=== PATIENT | male | born 1945 | race Caucasian/White ===

== ENCOUNTER 2020-08-11 09:17 | Outpatient (REF) | payer BC, SELFPAY ==
[2020-08-11 12:19] LABS: MANUAL DIFF FLAG NO
[2020-08-11 12:23] LABS: Basophils Percent Auto 0.5 % (0-2); Eosinophils Absolute Auto 0.1 X10*3/uL (0.0-0.4); Eosinophils Percent Auto 2.1 % (0-4); Hematocrit 42.7 % (42-52); Hemoglobin 14.4 g/dl (14.0-18.0); Imm Gran Abs Auto 0.02 X10*3/uL (0.00-0.03); Imm Gran Pct Auto 0.3 % (0.0-0.4); Lymphocytes Absolute Auto 2.6 X10*3/uL (1.2-4.9); Lymphocytes Percent Auto 38.9 % (20-40); Mean Corpuscular HGB Conc 33.7 g/dl (31.0-36.0); Mean Corpuscular Hemoglobin 30.3 pg (27.0-33.0); Mean Corpuscular Volume 89.9 fL (80-98); Mean Platelet Volume 11.5 fL (9.4-12.4); Monocytes Absolute Auto 0.6 X10*3/uL (0.1-1.2); Monocytes Percent Auto 8.5 % (2-11); Neutrophils Absolute Auto 3.3 X10*3/uL (2.0-8.3); Neutrophils Percent Auto 49.7 % (45-73); Platelet Count 170 X10*3/uL (160-400); Red Blood Count 4.75 X10*6/uL (4.60-5.80); Red Cell Distribution Width 13.3 % (11.0-16.0); White Blood Count 6.6 X10*3/uL (4.8-10.8)
[2020-08-11 12:39] LABS: Anion Gap 13 (12-20); Blood Urea Nitrogen 20 mg/dL (9-16); C Reactive Protein 0.09 mg/dL (< or = 0.50); Calcium 9.4 mg/dL (8.4-10.2); Carbon Dioxide 28 mmol/L (22-29); Chloride 103 mmol/L (96-108); Estimated Glomerular Filt Rate > 60; Glucose Random 130 mg/dL (60-115); Magnesium 1.9 mg/dL (1.6-2.6); Potassium 4.6 mmol/l (3.3-5.1); Sodium 139 mmol/L (135-145)
[2020-08-14 22:25] LABS: Vitamin B12 615 pg/mL (200-900)
== END 2020-08-11 09:18 | disposition home or self-care (01) ==
LOC: HO.10HDL 09:17
PROVIDERS: Visit Provider Internal Medicine
DX: R25.2 Cramp and spasm (principal)
CPT/HCPCS: 36415; 80048; 82607; 83735; 85025; 86140

== ENCOUNTER 2020-08-16 11:34 | Outpatient (REF) | payer BC, SELFPAY ==
--- NOTE | 2020-08-16 | XR_ITS ---
EXAMINATION: XR HAND, RIGHT CLINICAL INFORMATION: Right thumb pain COMPARISON: None TECHNIQUE: PA, lateral, and oblique views of the right hand. FINDINGS: There is no fracture or dislocation. Alignment is anatomic. Joint spaces are maintained with small osteophytes throughout the interphalangeal joints. The soft tissues are unremarkable. IMPRESSION: Small osteophytes throughout the interphalangeal joints. Otherwise unremarkable appearance of the hand.
== END 2020-08-16 11:35 | disposition home or self-care (01) ==
LOC: HO.XRAY 11:34
PROVIDERS: PCP Internal Medicine; Visit Provider Internal Medicine
DX: M79.644 Pain in right finger(s) (principal)
CPT/HCPCS: 73130

== ENCOUNTER 2020-11-04 07:53 | Outpatient (REF) | payer BC, SELFPAY ==
[2020-11-04 08:31] LABS: MANUAL DIFF FLAG NO
[2020-11-04 08:36] LABS: Basophils Percent Auto 0.3 % (0-2); Eosinophils Absolute Auto 0.1 X10*3/uL (0.0-0.4); Eosinophils Percent Auto 1.8 % (0-4); Hematocrit 44.2 % (42-52); Hemoglobin 14.9 g/dl (14.0-18.0); Imm Gran Abs Auto 0.03 X10*3/uL (0.00-0.03); Imm Gran Pct Auto 0.4 % (0.0-0.4); Lymphocytes Percent Auto 40.8 % (20-40); Mean Corpuscular HGB Conc 33.7 g/dl (31.0-36.0); Mean Corpuscular Hemoglobin 29.7 pg (27.0-33.0); Mean Platelet Volume 10.6 fL (9.4-12.4); Monocytes Absolute Auto 0.7 X10*3/uL (0.1-1.2); Monocytes Percent Auto 8.8 % (2-11); Neutrophils Absolute Auto 3.5 X10*3/uL (2.0-8.3); Neutrophils Percent Auto 47.9 % (45-73); Platelet Count 171 X10*3/uL (160-400); Red Blood Count 5.02 X10*6/uL (4.60-5.80); Red Cell Distribution Width 12.9 % (11.0-16.0); White Blood Count 7.4 X10*3/uL (4.8-10.8)
[2020-11-04 08:54] LABS: Alanine Aminotransferase 25 U/L (0-40); Albumin Level 4.2 g/dL (3.5-5.0); Alkaline Phosphatase 58 U/L (39-117); Anion Gap 11 (12-20); Aspartate Amino Transferase 19 U/L (5-37); Bilirubin Total 0.7 mg/dL (0.0-1.0); Blood Urea Nitrogen 20 mg/dL (9-16); Calcium 8.9 mg/dL (8.4-10.2); Carbon Dioxide 29 mmol/L (22-29); Chloride 102 mmol/L (96-108); Estimated Glomerular Filt Rate > 60; Glucose Random 171 mg/dL (60-115); Potassium 4.4 mmol/l (3.3-5.1); Sodium 138 mmol/L (135-145); Total Protein 6.9 g/dL (6.5-8.0)
[2020-11-04 08:56] LABS: Creatinine Urine 167.86 mg/dL; Microalbum/Creatinine Ratio Ur 4.7 ug/mg cr
[2020-11-04 09:03] LABS: Estimated Average Glucose 171 mg/dL; Hemoglobin A1c % 7.6 %
[2020-11-04 09:16] LABS: Free T4 (Free Thyroxine) 1.11 ng/dL (0.71-1.85); Thyroid Stimulating Hormone 1.71 uIU/mL (0.32-4.0)
== END 2020-11-04 07:54 | disposition home or self-care (01) ==
LOC: HO.LAB 07:53
PROVIDERS: PCP Internal Medicine; Visit Provider Internal Medicine
DX: E11.9 Type 2 diabetes mellitus without complications (principal); E03.9 Hypothyroidism, unspecified; I10 Essential (primary) hypertension
CPT/HCPCS: 36415; 80053; 82043; 83036; 84439; 84443; 85025

== ENCOUNTER 2020-11-06 14:09 | Outpatient (REF) | payer BC, SELFPAY | END 2020-11-06 14:10 | disposition home or self-care (01) | LOC: HO.LNP 14:09 | PROVIDERS: Visit Provider Internal Medicine | DX: Z20.822 Contact with and (suspected) exposure to COVID-19 (principal) | CPT/HCPCS: U0003 ==

== ENCOUNTER → 2020-12-21 10:37 | Outpatient (BNVA) | payer BC, SELFPAY | PROVIDERS: Visit Provider Orthopaedic Surgery | DX: M77.01 Medial epicondylitis, right elbow (principal) | CPT/HCPCS: 20550; 20605; J1020; J1100 ==

== ENCOUNTER 2021-04-28 18:19 | Emergency (ER) | payer OTHER, BC, SELFPAY ==
--- NOTE | ~2021-04-28 | CT_ITS ---
EXAMINATION: CT ABDOMEN AND PELVIS WITHOUT CONTRAST CLINICAL INFORMATION: Lower abdominal pain COMPARISON: 03/17/2017 TECHNIQUE: Multidetector volumetric imaging was performed from the superior aspect of the liver through the pubic symphysis. Sagittal and coronal reformatted images were obtained on the technologist's workstation. This CT examination was performed using dose optimization techniques as appropriate, variously including the following: *Automated exposure control *Adjustment of mA and/or kV according to patient size (this includes techniques or standardized protocols for targeted exams where dose is matched to indication/reason for exam; i.e. extremities or head) *Use of iterative reconstruction technique DLP: 534 mGy-cm FINDINGS: LUNG BASES: The visualized lung bases are unremarkable. LIVER, GALLBLADDER, AND BILIARY TREE: Once again heterogeneous attenuation the liver but no defined lesion. Similar to previous. Maybe consistent with subsegmental fatty change. Consider ultrasound The gallbladder is unremarkable with no evidence of radiopaque gallstones, gallbladder wall thickening, or obvious pericholecystic inflammatory changes. PANCREAS: Unremarkable. SPLEEN: Unremarkable. ADRENAL GLANDS: Unremarkable. KIDNEYS AND URETERS: The kidneys are normal in size, shape, and attenuation. No hydronephrosis, hydroureter, or calculi seen. No perinephric stranding. BLADDER: Unremarkable. GASTROINTESTINAL TRACT: Soft tissue stranding around the proximal sigmoid. Diverticula in the region. Most consistent with diverticulitis. No drainable collection. ABDOMINAL WALL: No significant hernia is appreciated. LYMPH NODES: Normal. VASCULAR: Atherosclerotic change. No aneurysmal change. PELVIC VISCERA: Prominent prostate OSSEOUS STRUCTURES: Unremarkable. CT/CT abdomen pelvis wo con IMPRESSION: Endings consistent with diverticulitis in the proximal sigmoid. No drainable collection. Prominent prostate
[2021-04-28 18:20] VITALS: BP 131/102; PULSE 90; RESP 16; TEMP 36.6; O2SAT 98; BMI 29.2
--- NOTE | 2021-04-28 19:00 | ED_ITS ---
HPI - Abdominal Pain General Chief Complaint: Abdominal Pain Stated Complaint: LOWER CRAMPING Time Seen by Provider: 04/28/21 18:58 Source: patient Mode of arrival: ambulatory Limitations: no limitations History of Present Illness HPI narrative: 75-year-old male with past medical history that is significant for arthritis, hypercholesteremia, hypertension, thyroid disease, anxiety and prior history of renal calculi in 2017 for today presents with complaint of states he had [employer] take out on Friday he ate a small portion of his bowl he subsequent save the rest for the next day which she had and also that day he has some seafood and afterward developed lower abdominal cramping with slight diarrhea. States he has had continued low abdominal cramping since. There is no associated nausea vomiting. Also did report to the triage nurse he has some slight discomfort urination which states he only had 1 episode and has not had any further. States he does have history of renal calculi but this does not feel like that. He denies any hematuria. No fever. No flank pain. MD elicited complaint: abdominal pain Pertinent past history: none Onset (ago): day(s) Pain Consistency: intermittent Location: none Severity: mild Quality: cramping Migration to: no migration Exacerbating factors: nothing Relieving factors: nothing Associated symptoms: denies other symptoms Related Data Home Medications Medication Instructions Recorded Confirmed hydrochlorothiazide 25 mg tablet 25 mg PO DAILY 12/21/20 levothyroxine 100 mcg capsule 100 mcg PO DAILY 12/21/20 lisinopril 5 mg tablet 5 mg PO DAILY 12/21/20 simvastatin 40 mg tablet 40 mg PO DAILY 12/21/20 Previous Rx's Medication Instructions Recorded ciprofloxacin HCl 500 mg PO BID 7 Days #14 tab 04/28/21 metronidazole [Flagyl] 500 mg PO Q12H 7 Days #14 tab 04/28/21 Allergies Allergy/AdvReac Type Severity Reaction Status Date / Time No Known Allergies Allergy Unverified 07/20/20 15:06 Review of Systems Review of Systems Constitutional: No Weight loss, No Fever, No Chills, No Night Sweats, No Fatigue, No Malaise ENT/Mouth: No Hearing loss, No Ear Pain, No Nasal Congestion, No Sinus Pain, No Hoarseness, No sore throat, No Rhinorrhea, No Swallowing Difficulty Eyes: No Eye Pain, No Swelling, No Redness, No Foreign Body, No Discharge, No Vision Changes Cardiovascular: No Chest Pain, No SOB, No Dyspnea on Exertion, No Orthopnea, No Edema, No Palpitations Respiratory: No Cough, No Sputum, No Wheezing, No Smoke Exposure, No Dyspnea Gastrointestinal: No Nausea, No Vomiting, + Diarrhea, No Constipation, + abdominal Pain, No Hematochezia, No Melena Genitourinary: No Dysuria, No Urinary Frequency, No Hematuria, No Urinary Incontinence, No Urgency, No Flank Pain, No Urinary Flow Changes, No Hesitancy Musculoskeletal: No joint pain, No Myalgias, No Joint Swelling Skin: No Skin Lesions, No rash Neuro: No Weakness, No Numbness, No Paresthesias, No Loss of Consciousness, No Dizziness, No Headache Psych: No Social Issues Heme/Lymph: No Bruising, No Bleeding,No Lymphadenopathy Endocrine: No Polyuria, No Polydipsia, No Temperature Intolerance Yes all other systems are reviewed and are negative Physical Exam Vital Signs: Vital Signs: Last Vital Signs Temp 98.7 F 04/28/21 19:46 Pulse 88 04/28/21 19:46 Resp 14 04/28/21 19:46 BP 147/85 H 04/28/21 19:46 Pulse Ox 99 04/28/21 19:46 Body Mass Index 29.2 Reviewed Const: General: cooperative and healthy appearing; No acute distress or intoxicated appearing Nutritional Appearance: average body habitus Orientation/consciousness: patient oriented x3 HENMT: Head: Yes normal to inspection Ears: hearing grossly normal bilaterally Eyes: General: appearance normal, both eyes and all related structures Visual Dasilva: normal visual dasilva by confrontation Neck: Neck: Yes normal visual inspection, No positive Brudzinski's sign, No positive Kernig's sign and No tender Thyroid: Thyroid normal Chest: Chest palpation & inspection: normal inspection of the chest Resp: Effort & Inspection: normal respiratory effort Auscultation: clear to auscultation bilaterally Cardio: Jugular venous distension: no JVD Rhythm: regular rhythm Heart sounds: S1 normal heart sound present and S2 normal heart sound present GI: Inspection: Yes normal to inspection Palpation (GI): Soft to palpation Percussion: Yes normal to percussion Auscultation: normal bowel sounds : General: Yes no CVA tenderness Back/Spine/Pelvis: Back: no CVA tenderness Skin: General skin exam: no rashes or lesions noted Neuro: General: patient oriented x3 Extrem: General: Yes normal to inspection Course Course Course Narrative: has not required any antiemetics or pain medicine. States minimal to no pain at this time. Labs showed leukocytosis of 14 otherwise labs stable. He is vital signs are stable. No fever. CT of the abdomen pelvis shows diverticulitis in the proximal aspect of the sigmoid colon. There is no abscess or drainable collection. There is no perforation. Findings were reviewed with patient. Given dose of quinolone and Flagyl would like to go home try p.o. antibiotics. Clear precaution return follow-up provided. Feels comfortable plan. Stable for discharge. MDM - Abdominal Pain Differential Diagnosis Differential diagnosis: Likely abdominal pain, calculus of kidney, diverticulitis, gastroenteritis and renal colic; Unlikely aortic dissection, acute appendicitis, bowel perforation, constipation, gastritis, mesenteric ischemia, pancreatitis, peptic ulcer disease and small bowel obstruction Medical Records Attestation: I reviewed the patient's medical records. Lab Data Attestation: I reviewed the patient's lab results. Result diagrams: 04/28/21 19:13 04/28/21 19:13 Labs: Lab Results 04/28/21 04/28/21 04/28/21 Range/Units 19:04 19:13 19:13 WBC 14.0 H (4.8-10.8) X10*3/uL RBC 5.14 (4.60-5.80) X10*6/uL Hgb 15.7 (14.0-18.0) g/dl Hct 44.5 (42-52) % MCV 86.6 (80-98) fL MCH 30.5 (27.0-33.0) pg MCHC 35.3 (31.0-36.0) g/dl RDW 12.8 (11.0-16.0) % Plt Count 211 (160-400) X10*3/uL MPV 9.8 (9.4-12.4) fL Immature Gran % (Auto) 0.3 (0.0-0.4) % Neut % (Auto) 72.1 (45-73) % Lymph % (Auto) 19.3 L (20-40) % [place] % (Auto) 7.6 (2-11) % Eos % (Auto) 0.5 (0-4) % Baso % (Auto) 0.2 (0-2) % Lymph # (Auto) 2.7 (1.2-4.9) X10*3/uL [place] # (Auto) 1.1 (0.1-1.2) X10*3/uL Eos # (Auto) 0.1 (0.0-0.4) X10*3/uL Baso # (Auto) 0.0 (0.0-0.2) X10*3/uL Abs Immat Gran (auto) 0.04 H (0.00-0.03) X10*3/uL Absolute Neuts (auto) 10.1 H (2.0-8.3) X10*3/uL Absolute Nucleated RBC 0.000 (0.0-0.012) X10*3/uL Nucleated RBC % (auto) 0.0 (0.0-0.2) /100WBC Sodium 135 (135-145) mmol/L Potassium 4.2 (3.3-5.1) mmol/L Chloride 99 (96-108) mmol/L Carbon Dioxide 23 (22-29) mmol/L Anion Gap 17 (12-20) BUN 16 (9-16) mg/dL Creatinine 0.82 (0.5-1.4) mg/dL Estim Creat Clear Calc 80.7 Estimated GFR > 60 Random Glucose 141 H (60-115) mg/dL Calcium 9.4 (8.4-10.2) mg/dL Total Bilirubin 0.7 (0.0-1.0) mg/dL AST 21 (5-37) U/L ALT 17 (0-40) U/L Alkaline Phosphatase 65 (39-117) U/L Total Protein 7.4 (6.5-8.0) g/dL Albumin 4.4 (3.5-5.0) g/dL Urine Color YELLOW Urine Appearance CLEAR Urine pH 6.0 (5.0-8.0) Ur Specific [place] 1.025 (1.005-1.025) Urine Protein NEG (NEG-TRACE) MG/DL Urine Glucose (UA) NEG (NEG) MG/DL Urine Ketones 15 (NEG) MG/DL Urine Blood TRACE (NEG) Urine Nitrite NEG (NEG) Ur Leukocyte Esterase NEG (NEG) Urine RBC 5-9 H (0) /HPF Urine WBC 0-2 (0-4) /HPF Ur Squamous Epith Cells NONE /LPF Urine Bacteria NONE /LPF Urine Mucus TRACE /LPF Imaging Data abdominal/pelvis CT: Radiologist's impression: [address] [id number] Scan ReportSigned Patient: Jose Carlos Alonzo [facility]#: [id number]: 7Acct:[id number]/Sex: 75 / MADM Date: 04/28/21Loc: HO.EDAttending Dr: Ordering Physician: Yariel Evans NP Date of Service: 04/28/21 Procedure(s): CT abdomen pelvis wo con Accession Number(s): [id number] cc: Yariel Evans 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 Sagittal and coronal reformatted images were obtained on the technologist's workstation. This CT examination was performed using dose optimization techniques as appropriate, variously including the following: *Automated exposure control *Adjustment of mA and/or kV according to patient size (this includes techniques or standardized protocols for targeted exams where dose is matched to indication/reason for exam; i.e. extremities or head) *Use of iterative reconstruction technique DLP: 534 mGy-cm FINDINGS: LUNG BASES: The visualized lung bases are unremarkable. LIVER, GALLBLADDER, AND BILIARY TREE: Once again heterogeneous attenuation the liver but no defined lesion. Similar to previous. Maybe consistent with subsegmental fatty change. Consider ultrasound The gallbladder is unremarkable with no evidence of radiopaque gallstones, gallbladder wall thickening, or obvious pericholecystic inflammatory changes. PANCREAS: Unremarkable. SPLEEN: Unremarkable. ADRENAL GLANDS: Unremarkable. KIDNEYS AND URETERS: The kidneys are normal in size, shape, and attenuation. No hydronephrosis, hydroureter, or calculi seen. No perinephric stranding. BLADDER: Unremarkable. GASTROINTESTINAL TRACT: Soft tissue stranding around the proximal sigmoid. Diverticula in the region. Most consistent with diverticulitis. No drainable collection. ABDOMINAL WALL: No significant hernia is appreciated. LYMPH NODES: Normal. VASCULAR: Atherosclerotic change. No aneurysmal change. PELVIC VISCERA: Prominent prostate OSSEOUS STRUCTURES: Unremarkable. CT/CT abdomen pelvis wo con IMPRESSION: Endings consistent with diverticulitis in the proximal sigmoid. No drainable collection. 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: GT Discharge Plan Discharge Clinical Impression: Diverticulitis Patient Disposition: Home, Self-Care Instructions: Diverticulitis (ED), Diverticulitis Diet (ED) Additional Instructions: follow dietary precautions Take your antibiotic as prescribed Return if any concerns or worsening symptoms otherwise follow up with her primary care doctor thank you Prescriptions: New metronidazole [Flagyl] 500 mg tablet 500 mg PO Q12H 7 Days Qty: 14 RF: 0 ciprofloxacin HCl 500 mg tablet 500 mg PO BID 7 Days Qty: 14 RF: 0 Referrals: Jonathon Hammond MD [Primary Care Provider] - 3 days PMF Past Medical History Medical History Hypercholesteremia Hypertension Hyperthyroidism Social History Social History Alcohol intake: never Patient Tobacco Use Status: Never used Tobacco Use of substances other than those prescribed or required for medical reasons: No Advance Directives: Yes Advance Directives on File: Yes Advance Directives Date on File: 08/11/20
[2021-04-28 19:14] LABS: Glucose Urine UA NEG (NEG); Leukocyte Esterase Urine NEG (NEG); Nitrite Urine NEG (NEG); Specific Gravity - Urine 1.025 (1.005-1.025); Urine Blood TRACE (NEG); Urine Ketones 15 MG/DL (NEG); Urine Protein NEG (NEG-TRACE)
[2021-04-28 19:17] LABS: MANUAL DIFF FLAG NO
[2021-04-28] MEDS: 0.9 % Sodium Chloride 500 ML IV (19:18)
[2021-04-28 19:20] LABS: Appearance Urine CLEAR; Color Urine YELLOW
[2021-04-28 19:21] LABS: Basophils Percent Auto 0.2 % (0-2); Eosinophils Absolute Auto 0.1 X10*3/uL (0.0-0.4); Eosinophils Percent Auto 0.5 % (0-4); Hematocrit 44.5 % (42-52); Hemoglobin 15.7 g/dl (14.0-18.0); Imm Gran Abs Auto 0.04 X10*3/uL (0.00-0.03); Imm Gran Pct Auto 0.3 % (0.0-0.4); Lymphocytes Absolute Auto 2.7 X10*3/uL (1.2-4.9); Lymphocytes Percent Auto 19.3 % (20-40); Mean Corpuscular HGB Conc 35.3 g/dl (31.0-36.0); Mean Corpuscular Hemoglobin 30.5 pg (27.0-33.0); Mean Corpuscular Volume 86.6 fL (80-98); Mean Platelet Volume 9.8 fL (9.4-12.4); Monocytes Absolute Auto 1.1 X10*3/uL (0.1-1.2); Monocytes Percent Auto 7.6 % (2-11); Neutrophils Absolute Auto 10.1 X10*3/uL (2.0-8.3); Neutrophils Percent Auto 72.1 % (45-73); Platelet Count 211 X10*3/uL (160-400); Red Blood Count 5.14 X10*6/uL (4.60-5.80); Red Cell Distribution Width 12.8 % (11.0-16.0)
[2021-04-28 19:27] LABS: Mucus Urine TRACE /LPF; WBC Urine 0-2 /HPF (0-4)
[2021-04-28 19:46] VITALS: BP 147/85; PULSE 88; RESP 14; TEMP 37.1; O2SAT 99
[2021-04-28 19:55] LABS: Alanine Aminotransferase 17 U/L (0-40); Albumin Level 4.4 g/dL (3.5-5.0); Alkaline Phosphatase 65 U/L (39-117); Anion Gap 17 (12-20); Aspartate Amino Transferase 21 U/L (5-37); Bilirubin Total 0.7 mg/dL (0.0-1.0); Blood Urea Nitrogen 16 mg/dL (9-16); Calcium 9.4 mg/dL (8.4-10.2); Carbon Dioxide 23 mmol/L (22-29); Chloride 99 mmol/L (96-108); Creatinine Clr Calc Pharmacy 80.7; Estimated Glomerular Filt Rate > 60; Glucose Random 141 mg/dL (60-115); Potassium 4.2 mmol/L (3.3-5.1); Sodium 135 mmol/L (135-145); Total Protein 7.4 g/dL (6.5-8.0)
[2021-04-28] MEDS: levoFLOXacin 500 MG TABLET PO (21:12)
[2021-04-28] MEDS: metroNIDAZOLE 500 MG TABLET PO (21:12)
== END 2021-04-28 21:21 | disposition home or self-care (01) ==
PROVIDERS: Nurse Practitioner Primary Care; Emergency Provider Internal Medicine; PCP Internal Medicine
DX: K57.92 Diverticulitis of intestine, part unspecified, without perforation or abscess without bleeding (principal); I10 Essential (primary) hypertension; Z87.442 Personal history of urinary calculi
CPT/HCPCS: 36415; 74176; 80053; 81001; 85025; 96360; 99284; 99285

== ENCOUNTER 2021-06-27 10:56 | Outpatient (REF) | payer BC, SELFPAY ==
[2021-06-27 13:53] LABS: Estimated Average Glucose 148 mg/dL; Hemoglobin A1c % 6.8 %
[2021-06-27 14:31] LABS: Creatinine Urine 101.07 mg/dL; Microalbum/Creatinine Ratio Ur 4.9 ug/mg cr
[2021-06-27 14:51] LABS: Anion Gap 12 (12-20); Blood Urea Nitrogen 17 mg/dL (9-16); Carbon Dioxide 27 mmol/L (22-29); Chloride 102 mmol/L (96-108); Estimated Glomerular Filt Rate > 60; Glucose Random 108 mg/dL (60-115); Potassium 4.4 mmol/L (3.3-5.1); Sodium 137 mmol/L (135-145)
[2021-06-27 14:55] LABS: Free T4 (Free Thyroxine) 1.34 ng/dL (0.71-1.85); Thyroid Stimulating Hormone 0.39 uIU/mL (0.32-4.0)
== END 2021-06-27 10:57 | disposition home or self-care (01) ==
LOC: HO.10HDL 10:56
PROVIDERS: PCP Internal Medicine; Visit Provider Internal Medicine
DX: E11.9 Type 2 diabetes mellitus without complications (principal); I10 Essential (primary) hypertension; E03.9 Hypothyroidism, unspecified
CPT/HCPCS: 36415; 80048; 82043; 83036; 84439; 84443

== ENCOUNTER 2022-01-15 10:30 | Outpatient (REF) | payer BC, SELFPAY ==
[2022-01-15 12:05] LABS: Estimated Average Glucose 186 mg/dL; Hemoglobin A1c % 8.1 %
[2022-01-15 12:28] LABS: Creatinine Urine 78.74 mg/dL; Microalbum/Creatinine Ratio Ur 13.9 ug/mg cr
[2022-01-15 12:34] LABS: Alanine Aminotransferase 23 U/L (0-40); Albumin Level 4.3 g/dL (3.5-5.0); Alkaline Phosphatase 75 U/L (39-117); Anion Gap 15 (12-20); Aspartate Amino Transferase 20 U/L (5-37); Bilirubin Total 0.4 mg/dL (0.0-1.0); Blood Urea Nitrogen 15 mg/dL (9-16); Carbon Dioxide 25 mmol/L (22-29); Chloride 100 mmol/L (96-108); Estimated Glomerular Filt Rate > 60; Glucose Random 212 mg/dL (60-115); Potassium 4.4 mmol/L (3.3-5.1); Sodium 136 mmol/L (135-145); Total Protein 7.4 g/dL (6.5-8.0)
[2022-01-15 12:38] LABS: Free T4 (Free Thyroxine) 1.29 ng/dL (0.71-1.85); Thyroid Stimulating Hormone 0.73 uIU/mL (0.32-4.0)
== END 2022-01-15 10:31 | disposition home or self-care (01) ==
LOC: HO.HMGCLDS 10:30
PROVIDERS: Visit Provider Internal Medicine
DX: E11.9 Type 2 diabetes mellitus without complications (principal); E03.9 Hypothyroidism, unspecified; I10 Essential (primary) hypertension
CPT/HCPCS: 36415; 80053; 82043; 83036; 84439; 84443

== ENCOUNTER 2022-06-04 11:47 | Outpatient (REF) | payer BC, SELFPAY ==
[2022-06-04 12:51] LABS: Estimated Average Glucose 180 mg/dL; Hemoglobin A1c % 7.9 %
[2022-06-04 13:15] LABS: Anion Gap 16 (12-20); Blood Urea Nitrogen 18 mg/dL (9-16); Calcium 9.6 mg/dL (8.4-10.2); Carbon Dioxide 25 mmol/L (22-29); Chloride 101 mmol/L (96-108); Estimated Glomerular Filt Rate > 60; Glucose Random 176 mg/dL (60-115); Potassium 4.4 mmol/L (3.3-5.1); Sodium 138 mmol/L (135-145)
[2022-06-04 13:37] LABS: Prostate Specific Antigen 0.82 ng/mL (<0.05-4.0)
== END 2022-06-04 11:48 | disposition home or self-care (01) ==
LOC: HO.LAB 11:47
PROVIDERS: PCP Internal Medicine; Visit Provider Internal Medicine
DX: Z12.5 Encounter for screening for malignant neoplasm of prostate (principal); I10 Essential (primary) hypertension; E11.9 Type 2 diabetes mellitus without complications; N40.0 Benign prostatic hyperplasia without lower urinary tract symptoms
CPT/HCPCS: 36415; 80048; 83036; 84153

== ENCOUNTER 2022-08-20 16:35 | Outpatient (REF) | payer OTHER, SELFPAY ==
--- NOTE | ~2022-08-20 | US_ITS ---
EXAMINATION: US VENOUS ULTRASOUND WITH DOPPLER LOWER EXTREMITY, RIGHT CLINICAL INFORMATION: Calf pain. Question DVT. COMPARISON: None TECHNIQUE: Ultrasound of the deep veins is performed from the hip to the calf with compression sonography and color and pulse Doppler assessment. Spectral analysis with color-flow imaging is performed. FINDINGS: There is normal venous compression and respiratory variation and augmented flow. The visualized common femoral vein, superficial femoral vein, profunda femoral vein, popliteal vein, and the trifurcation region shows no evidence of deep venous thrombosis. There is no significant popliteal fossa cyst. If the patient's symptoms persist, followup ultrasound in 5 days 7 days might be of value to exclude proximal propagation from a non-visualized calf vein. US/US venous duplex LE RT IMPRESSION: No DVT demonstrated in the right lower extremity.
== END 2022-08-20 16:36 | disposition home or self-care (01) ==
LOC: HO.US 16:35
PROVIDERS: PCP Internal Medicine; Visit Provider Internal Medicine
DX: M79.661 Pain in right lower leg (principal)
CPT/HCPCS: 93971

== ENCOUNTER 2022-09-10 10:52 | Outpatient (REF) | payer BC, SELFPAY ==
[2022-09-10 14:19] LABS: Anion Gap 12 (12-20); Blood Urea Nitrogen 16 mg/dL (9-16); Calcium 10.2 mg/dL (8.4-10.2); Carbon Dioxide 29 mmol/L (22-29); Chloride 98 mmol/L (96-108); Estimated Glomerular Filt Rate > 60; Glucose Random 106 mg/dL (60-115); Magnesium 1.8 mg/dL (1.6-2.6); Potassium 4.4 mmol/L (3.3-5.1); Sodium 135 mmol/L (135-145)
[2022-09-10 14:31] LABS: Creatinine Urine 107.34 mg/dL; Microalbum/Creatinine Ratio Ur 6.5 ug/mg cr
[2022-09-10 14:32] LABS: Estimated Average Glucose 160 mg/dL; Hemoglobin A1c % 7.2 %
== END 2022-09-10 10:53 | disposition home or self-care (01) ==
LOC: HO.10HDL 10:52
PROVIDERS: Visit Provider Internal Medicine
DX: I10 Essential (primary) hypertension (principal); E11.9 Type 2 diabetes mellitus without complications; R25.2 Cramp and spasm
CPT/HCPCS: 36415; 80048; 82043; 83036; 83735

== ENCOUNTER 2023-03-24 09:59 | Outpatient (REF) | payer BC, SELFPAY ==
[2023-03-24 10:46] LABS: MANUAL DIFF FLAG NO
[2023-03-24 10:50] LABS: Basophils Percent Auto 0.5 % (0-2); Eosinophils Absolute Auto 0.1 X10*3/uL (0.0-0.4); Eosinophils Percent Auto 1.4 % (0-4); Hematocrit 44.6 % (42.0-52.0); Hemoglobin 15.2 g/dl (14.0-18.0); Imm Gran Abs Auto 0.03 X10*3/uL (0.00-0.03); Imm Gran Pct Auto 0.4 % (0.0-0.4); Lymphocytes Absolute Auto 2.6 X10*3/uL (1.2-4.9); Lymphocytes Percent Auto 31.2 % (20-40); Mean Corpuscular HGB Conc 34.1 g/dl (31.0-36.0); Mean Corpuscular Hemoglobin 29.9 pg (27.0-33.0); Mean Corpuscular Volume 87.8 fL (80.0-98.0); Mean Platelet Volume 10.2 fL (9.4-12.4); Monocytes Absolute Auto 0.6 X10*3/uL (0.1-1.2); Monocytes Percent Auto 7.6 % (2-11); Neutrophils Percent Auto 58.9 % (45-73); Platelet Count 185 X10*3/uL (160-400); Red Blood Count 5.08 X10*6/uL (4.60-5.80); Red Cell Distribution Width 13.2 % (11.0-16.0); White Blood Count 8.5 X10*3/uL (4.8-10.8)
[2023-03-24 11:06] LABS: Estimated Average Glucose 160 mg/dL; Hemoglobin A1c % 7.2 %
[2023-03-24 11:42] LABS: Anion Gap 14 (12-20); Blood Urea Nitrogen 15 mg/dL (9-16); Calcium 9.6 mg/dL (8.4-10.2); Carbon Dioxide 27 mmol/L (22-29); Chloride 101 mmol/L (96-108); Estimated Glomerular Filt Rate > 60; Glucose Random 149 mg/dL (60-115); Potassium 4.5 mmol/L (3.3-5.1); Sodium 137 mmol/L (135-145)
== END 2023-03-24 10:00 | disposition home or self-care (01) ==
LOC: HO.10HDL 09:59
PROVIDERS: Visit Provider Internal Medicine
DX: I10 Essential (primary) hypertension (principal); E11.9 Type 2 diabetes mellitus without complications
CPT/HCPCS: 36415; 80048; 83036; 85025

== ENCOUNTER 2023-06-05 14:38 | Outpatient (AMB) | payer BC, SELFPAY ==
--- NOTE | 2023-06-05 14:49 | AM.OFFWIN_ITS ---
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 pt states he still feels light headed. Patient Tobacco Use Status: Never used Tobacco Allergies No Known Allergies Allergy (Verified 06/05/23 14:51) Do you need a note to return to daycare/school/sports/work: No HPI HPI Comments History of Present Illness Details 77-year-old male that presents for near syncopal episode. Patient states that he was driving today lightheaded acute bypass out. He pulled over to the side of the road. He continues to drive and continued to feel lightheaded. His lightheadedness is starting to resolve. He denies chest pain shortness of breath but during the incident did feel like he needed to burp but could not. Denies fevers chills cough urinary symptoms leg swelling calf tenderness recent flights or travel. Headaches or vision changes. [facility] Medical History Hypercholesteremia Hypertension Hyperthyroidism Social History Alcohol intake: never Patient Tobacco Use Status: Never used Tobacco Advance Directives Date on File: 08/11/20 Review of Systems Const All systems reviewed & are unremarkable except as noted in HPI and below Denies fever(s), Denies headache(s) and Denies weakness Eyes Reports no additional complaints ENT Reports no additional complaints and Denies headache(s) Card Reports no additional complaints, Denies chest pain, Denies leg edema and Denies dyspnea Resp Denies cough and Denies dyspnea GI Denies abdominal pain, Denies nausea and Denies vomiting Denies dysuria and Denies urinary frequency Musc Reports no additional complaints Neuro Denies headache(s) and Denies weakness Psych Reports no additional complaints Endo Reports no additional complaints Physical Exam Vital Signs: Last Vital Signs Temp 98.2 F 06/05/23 14:52 Pulse 95 06/05/23 14:52 BP 120/78 06/05/23 14:52 Pulse Ox 95 06/05/23 14:52 Oxygen Delivery Method Room Air 06/05/23 14:52 Const General: cooperative, no acute distress and alert Orientation/consciousness: patient oriented x3 Limitations: no limitations HEENT Head: Yes normal to inspection Ears: hearing grossly normal bilaterally and external ears normal General nose exam: Normal external nose present Eyes General: appearance normal, both eyes and all related structures Neck Neck: Yes normal visual inspection Chest Chest palpation & inspection: normal inspection of the chest Resp Effort & Inspection: normal respiratory effort, able to speak in complete sentences and no audible wheezes Auscultation: clear to auscultation bilaterally Cardio Rate: regular rate Rhythm: regular rhythm GI Inspection: Yes normal to inspection Palpation (GI): Soft to palpation and nontender Skin General skin exam: no rashes or lesions noted Neuro Other: NEURO PHYSCIAL EXAM Alert and oriented to person, place, time speech: clear, fluent CN II: visual acuity grossly intact b/l, PERRLA CN III, IV, : EOMI CN V: facial sensation grossly intact to light touch b/l CN VII: symmetric facial movement b/l, no facial droop CN VIII: hearing intact to finger rub b/l, no nystagmus CN IX, X: uvula midline CN XI: 5/5 strength with SCM and trapezius b/l CN XII: midline tongue protrusion, no atrophy or fasciculations motor: 5/5 muscle strength of UE/LE b/l, no pronator drift sensory: grossly intact b/l to light touch coordination: No dysmetria or dysdiadochokinesia with rapid alternating movement and finger to nose testing reflexes: 2+ DTR Gait: Normal General: patient oriented x3 Psych Appearance: grossly normal Mental Status: mental status grossly normal Speech and movement: Normal speech and movement present Affect: normal affect Attitude: cooperative Thought process: Normal thought process present Thought content: Normal thought content present Results AMB Random Glucose (hemocue) AMB Random Glucose (hemocue) 96 mg/dL Last Edit by NOVA Esparza 06/05/23 15:45 Results Reviewed Results Reviewed: Laboratory Last Values Random Glu (Clinic) 96 mg/dL 06/05/23 15:43 Assessment & Plan Assessment & Plan (1) Near syncope: Code(s): R55 - Syncope and collapse Plan VSS. On exam patient' presents alert and oriented no acute distress exam is otherwise unremarkable. Neuro exam grossly intact no focal pre new murmurs appreciated no calf swelling or lower extremity edema. Given patient is a consideration as neurologic versus cardiovascular versus infectious etiology low suspicion for infectious etiology given no systemic signs of illness to fevers or chills. Suspicion for cardiovascular houses given no chest pain. Discussed with patient limitations of the walk-in clinic will provide EKG as well as blood sugar check given patient is a diabetic. EKG shows no acute abnormalities this time although no additional EKG for comparison could be found. Blood sugar was 96. Long discussion occurred with the patient regarding possible causes of syncope/near-syncope. Discuss that there are certain limitations to the walk-in clinic and things that cannot be ruled out. Shared decision-making occurred with the patient. Patient states that he feels better at this time and thinks he will just check in with his primary care provider. Given the absence of concerning findings on examination, vital signs, EKG, blood sugar check as well as the absence of actual syncope and resolution of symptoms I feel that this is not unreasonable. Discharge instructions, follow up and treatment are discussed with patient in my usual fashion. Alternatives in treatment are also discussed. The patient will return for worsening symptoms or as needed. Advised that any labs/imaging ordered will be followed up on and contact made if further treatment needed. Counseled that patient's condition may require further evaluation and/or treatment. Symptoms of concern for worsening disorder discussed in detail in my customary manner. Patient does verbalize understanding of the plan, there are no apparent barriers to communication. The patient is given the opportunity to ask questions and have them answered to his/her satisfaction Orders: Orders AMB EKG-In Office Today R25.2 - Cramp and spasm AMB Random Glucose (hemocue) Today Z13.9 - Encounter for screening, unspecified Patient Instructions: Your seen and evaluated for your episode of lightheadedness this time as we discussed is unclear the cause of this. If you experience any new worsening symptoms such as chest pain shortness of breath leg swelling nausea vomiting abdominal pain , back pain or increasing symptoms not mentioned above please report to the emergency department Coding Level of Care Code Est Pt Level 4 (79749) Diagnoses Near syncope R55
[2023-06-05 14:52] VITALS: BP 120/78; PULSE 95; TEMP 36.8; O2SAT 95
== END 2023-06-05 15:53 | disposition home or self-care (01) ==
PROVIDERS: PCP Internal Medicine; Visit Provider Physician Assistant
DX: R55 Syncope and collapse (principal); Z13.9 Encounter for screening, unspecified
CPT/HCPCS: 82948; 99214

== ENCOUNTER 2023-06-26 09:48 | Outpatient (AMB) | payer BC, SELFPAY ==
--- NOTE | 2023-06-26 11:35 | AM.OFFWIN_ITS ---
Intake Vital Signs 06/26/23 11:36 Height 5 ft 6 in Weight 79.095 kg BMI 28.1 BP 122/70 Blood Pressure Location Rt brachial Position Sitting Pulse 76 Pulse Source Pulse Oximeter Temp 97 F Temp Source Temporal Artery Scan Pulse Oximetry (%) 98 Oxygen Delivery Method Room Air Intake Visit Reasons: EP, Right Index finger laceration Intake Note: Pt is here c/o right index finger laceration. Patient Tobacco Use Status: Never used Tobacco Allergies No Known Allergies Allergy (Verified 06/26/23 11:36) Do you need a note to return to daycare/school/sports/work: No HPI HPI Comments History of Present Illness Details 1215 77-year-old male presents for evaluation of laceration to right 2nd finger, on the fat pad region patient sustained this laceration with scissors while cutting electrical wire yesterday. Not up-to-date on tetanus shot. Denies numbness and tingling. Able to move finger however some discomfort. Denies fevers and chills. Physical exam with a 2 cm linear superficial laceration to right 2nd finger fat pad region. 2+ radial pulses equal bilateral. No wrist drop. Capillary refill less than 2 seconds to bilateral upper extremity digits. Normal sensation distally. Likely simple laceration, no signs of fracture, dislocation, neurovascular co mpromise or threat to [place]. No foreign bodies visualized Dermabond applied to affected area. Patient requested finger splint. Will be given to him. Educated patient on diagnosis and treatment plan, answered all question, patient verbalizes understanding. At this time patient will be discharged home, advised to return with new or worsening symptoms. Educated on worrisome signs and symptoms and when to return. At this time I feel comfortable discharge home. [facility] Medical History Hypercholesteremia Hypertension Hyperthyroidism Social History Alcohol intake: never Patient Tobacco Use Status: Never used Tobacco Advance Directives Date on File: 08/11/20 Review of Systems Const Details: Constitutional : No Fever, No Chills, Cardiovascular : No Chest Pain, No SOB Respiratory : No Dyspnea Gastrointestinal : No abdominal pain Musculoskeletal : No Joint Swelling Skin : No rash, positive skin laceration Neuro : No Weakness, No Numbness Psych : No SI/HI All systems reviewed & are unremarkable except as noted in HPI and below Physical Exam Vital Signs: Last Vital Signs Temp 97 F 06/26/23 11:36 Pulse 76 06/26/23 11:36 BP 122/70 06/26/23 11:36 Pulse Ox 98 06/26/23 11:36 Oxygen Delivery Method Room Air 06/26/23 11:36 BMI result Body Mass Index 28.1 vss Appearance: Alert.? Oriented X3.? No acute distress.? Head: Normocephalic, atraumatic, no step-offs or deformities Eyes: Pupils equal, round and reactive to light.? CVS: Normal heart rate and rhythm.? Pulses normal.? Respiratory: No respiratory distress.? Breath sounds normal.? Skin: Skin warm and dry.? Normal skin color.? Normal skin turgor.?+ 2 cm linear superficial laceration to right 2nd finger fat pad region. 2+ radial pulses equal bilateral. No wrist drop. Capillary refill less than 2 seconds to bilateral upper extremity digits. Normal sensation distally. Extremities: No lower extremity edema.? No calf ttp. 5/5 strength to bilateral upper and lower extremities Neuro: Oriented X 3.? No motor deficit.? No sensory deficit. CN 2-12 intact Assessment & Plan Assessment & Plan (1) Laceration of finger: Code(s): S61.219A - Laceration without foreign body of unspecified finger without damage to nail, initial encounter Plan Take your medications as prescribed. If you were prescribed antibiotics today, it is important that you take your medication to their entirety, do not skip any doses, do not finish them early. Follow-up with your primary care provider this week. Return to the emergency department with new or worsening symptoms. Such as fevers, chills, chest pain, shortness of breath, nausea, vomiting, dizziness, headache, vision changes, lethargy In case of emergency call 911 Orders: Orders TDaP Immunization Today S61.219A - Laceration without foreign body of unspecified finger without damage to nail, initial encounter Medications: New Boostrix Tdap (diphth,pertus(acell),tetanus) 0.5 mL IM ONCE 0.5 mL 0RF NS S61.219A - Laceration without foreign body of unspecified finger without damage to nail, initial encounter Coding Level of Care Code Est Pt Level 3 (74922) Diagnoses Laceration of finger S61.219A
[2023-06-26 11:36] VITALS: BP 122/70; PULSE 76; TEMP 36.1; O2SAT 98; BMI 28.1
== END 2023-06-26 13:09 | disposition home or self-care (01) ==
PROVIDERS: PCP Internal Medicine; Visit Provider Physician Assistant
DX: S61.210A Laceration without foreign body of right index finger without damage to nail, initial encounter (principal)
CPT/HCPCS: 90471; 90715; 99213

== ENCOUNTER 2023-07-03 12:22 | Outpatient (AMB) | payer BC, SELFPAY ==
--- NOTE | 2023-07-03 12:23 | MHC.OFFVIS ---
Intake Vital Signs 07/03/23 12:47 Height 5 ft 6 in Weight 174 lb BMI 28.1 Intake Visit Reasons: New prob- lt knee pain Intake Note: Jose Carlos is a 77 year old male who presents today for a new problem visit with complaints of left knee pain. Patient reports that he has had ongoing knee pain for quite some time but has had increased pain since the end of may. He was walking and felt a sharp pull in the back of the knee and almost fall. He does home exercise plan on his own for the knees. The kne is painful with all activities and twisting motions. Allergies No Known Allergies Allergy (Verified 06/26/23 11:36) HPI New prob- lt knee pain HPI Details Jose Carlos is a 77 year old man who presents with complaints of left knee pain. He complains of pain with daily activity, including twisting activities. He walks using a cane. He says he goes hunting in the fall while wearing his knee brace and tries to stay active with bowling and playing pool. He says he has had pain for some time but this worsened in the last month. He complains of a sharp pulling pain in the back of his knee at times. He says he has not been able to perform any of his desired activities in the last month due to his pain. He denies any prior treatment, he does say he performs at-home exercises for his knees. He has a hx of a left ACL tear from a fall in 2011, which was managed non-operatively due to the presence of OA. [facility] Medical History (Updated 07/03/23 @ 12:58 by Kian Newman) Hypercholesteremia Hypertension Hyperthyroidism Surgical History (Updated 07/03/23 @ 12:46 by Liana Morrell CMA) History of left knee surgery Social History Alcohol intake: never Patient Tobacco Use Status: Never used Tobacco Advance Directives Date on File: 08/11/20 Review of Systems Const All systems reviewed & are unremarkable except as noted in HPI and below Physical Exam Vital Signs: BMI result Body Mass Index 28.1 Const General: no acute distress, alert and awake Orientation/consciousness: patient oriented x3 HEENT Head: Yes normocephalic and Yes atraumatic Eyes EOM: EOMs intact bilaterally Resp Effort & Inspection: normal respiratory effort and able to speak in complete sentences Cardio Jugular venous distension: no JVD Skin General skin exam: turgor normal Rashes: no rashes Neuro General: patient oriented x3 Extrem Other: Left Knee: TTP along LJL predominantly Some medial sided knee pain Mild valgus alignment 1+ valgus instability with stress testing 5-125 degrees Psych Appearance: grossly normal Affect: normal affect Attitude: cooperative Results Reviewed Results Reviewed: I personally reviewed relevant radiographs. Moderate tricompartmental OA left knee Assessment & Plan Assessment & Plan (1) Osteoarthritis of left knee: Code(s): M17.12 - Unilateral primary osteoarthritis, left knee Plan: This is a 77 year old man with left knee OA, with a hx of an ACL tear in 2011. He has pain with daily activity, worse with prolonged ambulation or twisting activities. He feels limited in his ADLs, is an avid deborah in the fall and tries to remain active while using an assistive cane. He has been dealing with discomfort and pain for years and has finally got to the point that he feels the quality of his life is diminished. He cannot participate in daily activitites and NSAIDs, injections and activity modification have not helped. I discussed his diagnosis and treatment options. I recommend a left TKA. I discussed the risks, benefits, and alternatives including, but not limited to, the risk of pain, infection, stiffness, need for further surgery as well as potential medical complications such as blood clots, pulmonary embolism and cardiac complications. I discussed the recovery timeline and process as well as the importance of PT. Jose Carlos is a good candidate for this surgery, and he wishes to proceed with this decision. He will speak with Jennifer to schedule this procedure. Plan Scribed for Geraldo Blackman MD by Kian Newman, medical services manager, on 07/03/23 at 1:00 PM, EST. Orders: Orders XR knee LT 2V 07/03/23 M25.569 - Pain in unspecified knee XR knee standing BI 07/03/23 M25.569 - Pain in unspecified knee Coding Level of Care Code New Pt Level 4 (79374) Diagnoses Osteoarthritis of left knee M17.12
[2023-07-03 12:47] VITALS: BMI 28.1
== END 2023-07-03 13:24 | disposition home or self-care (01) ==
PROVIDERS: PCP Internal Medicine; Visit Provider Orthopaedic Surgery
DX: M17.12 Unilateral primary osteoarthritis, left knee (principal)
CPT/HCPCS: 99214

== ENCOUNTER 2023-07-03 12:22 | Outpatient (REF) | payer BC, SELFPAY ==
--- NOTE | ~2023-07-03 | XR_ITS ---
EXAMINATION: XR KNEE AP STANDING CLINICAL INFORMATION: Pain in the left knee COMPARISON: January 2019. TECHNIQUE: AP bilateral standing view of the knees was obtained. FINDINGS: There is focally mild to moderate narrowing in the lateral left knee joint space compartment. Small spurring changes in the left medial tibial plateau and left medial femoral condyle observed. There is minimal lateral left sided chondrocalcinosis. There is medial and lateral chondrocalcinosis of the right knee. No significant medial or lateral joint space narrowing. No erosive process. No fractures or dislocations observed. XR/XR knee standing BI IMPRESSION: 1. Degenerative changes as described. No acute bony fracture or dislocation. 2. Bilateral chondrocalcinosis. No significant right-sided joint space narrowing.
--- NOTE | ~2023-07-03 | XR_ITS ---
EXAMINATION: XR KNEE, LEFT CLINICAL INFORMATION: Pain in left knee COMPARISON: None available. TECHNIQUE: Two views of the left knee. FINDINGS: Small spurring of the patella and the femoral condyles. No acute fracture or dislocation seen. Small rounded calcifications are seen posterior to the femoral condyles which may potentially reflect loose bodies. There is a small suprapatellar effusion. XR/XR knee LT 2V IMPRESSION: 1. No acute fracture or dislocation. Small degenerative changes. 2. Small suprapatellar effusion. 3. Possible loose bodies posterior to the femoral condyles.
== END 2023-07-03 12:23 | disposition home or self-care (01) ==
LOC: HO.HOSX 12:22
PROVIDERS: PCP Internal Medicine; Visit Provider Orthopaedic Surgery
DX: M17.12 Unilateral primary osteoarthritis, left knee (principal)
CPT/HCPCS: 73560; 73565

== ENCOUNTER 2023-07-08 09:45 | Outpatient (REF) | payer BC, SELFPAY ==
[2023-07-08 13:22] LABS: MANUAL DIFF FLAG NO
[2023-07-08 13:36] LABS: Basophils Percent Auto 0.4 % (0-2); Eosinophils Absolute Auto 0.1 X10*3/uL (0.0-0.4); Eosinophils Percent Auto 0.7 % (0-4); Hemoglobin 15.2 g/dl (14.0-18.0); Imm Gran Abs Auto 0.02 X10*3/uL (0.00-0.03); Imm Gran Pct Auto 0.3 % (0.0-0.4); Lymphocytes Absolute Auto 2.6 X10*3/uL (1.2-4.9); Lymphocytes Percent Auto 34.2 % (20-40); Mean Corpuscular HGB Conc 33.8 g/dl (31.0-36.0); Mean Corpuscular Hemoglobin 29.9 pg (27.0-33.0); Mean Corpuscular Volume 88.6 fL (80.0-98.0); Mean Platelet Volume 11.7 fL (9.4-12.4); Monocytes Absolute Auto 0.5 X10*3/uL (0.1-1.2); Monocytes Percent Auto 6.9 % (2-11); Neutrophils Absolute Auto 4.3 x10*3/uL (2.0-8.3); Neutrophils Percent Auto 57.5 % (45-73); Platelet Count 145 X10*3/uL (160-400); Red Blood Count 5.08 X10*6/uL (4.60-5.80); Red Cell Distribution Width 13.2 % (11.0-16.0); White Blood Count 7.5 X10*3/uL (4.8-10.8)
[2023-07-08 13:50] LABS: Appearance Urine Clear; Color Urine Yellow; Glucose Urine UA Negative (Negative); Leukocyte Esterase Urine Negative (Negative); Nitrite Urine Negative (Negative); PH 5.5 (5.0-9.0); Urine Blood Negative (Negative); Urine Ketones Negative (Negative); Urine Protein Negative (Neg-Trace)
[2023-07-08 14:28] LABS: Creatinine Urine 114.93 mg/dL; Microalbum/Creatinine Ratio Ur 6.9 ug/mg cr (<30)
[2023-07-08 14:34] LABS: Estimated Average Glucose 157 mg/dL; Hemoglobin A1c % 7.1 % (<6.0)
[2023-07-08 15:13] LABS: Alanine Aminotransferase 19 U/L (0-40); Albumin Level 4.3 g/dL (3.5-5.0); Alkaline Phosphatase 54 U/L (39-117); Anion Gap 10 (12-20); Aspartate Amino Transferase 20 U/L (5-37); Bilirubin Total 0.5 mg/dL (0.0-1.0); Blood Urea Nitrogen 16 mg/dL (9-16); Calcium 10.3 mg/dL (8.4-10.2); Carbon Dioxide 28 mmol/L (22-29); Chloride 102 mmol/L (96-108); Estimated Glomerular Filt Rate > 60; Glucose Random 140 mg/dL (60-115); Potassium 4.4 mmol/L (3.3-5.1); Sodium 136 mmol/L (135-145); Total Protein 7.5 g/dL (6.5-8.0)
[2023-07-08 15:35] LABS: Free T4 (Free Thyroxine) 1.07 ng/dL (0.71-1.85); Thyroid Stimulating Hormone 0.65 uIU/mL (0.32-4.0)
== END 2023-07-08 09:46 | disposition home or self-care (01) ==
LOC: HO.HMGCLDS 09:45
PROVIDERS: PCP Internal Medicine; Visit Provider Internal Medicine
DX: I10 Essential (primary) hypertension (principal); E03.9 Hypothyroidism, unspecified; E11.9 Type 2 diabetes mellitus without complications
CPT/HCPCS: 36415; 80053; 81003; 82043; 82570; 83036; 84439; 84443; 85025

== ENCOUNTER 2023-07-24 09:44 | Outpatient (REF) | payer BC, SELFPAY ==
[2023-07-24 13:09] LABS: MANUAL DIFF FLAG NO
[2023-07-24 13:16] LABS: Basophils Percent Auto 0.2 % (0-2); Eosinophils Absolute Auto 0.1 X10*3/uL (0.0-0.4); Eosinophils Percent Auto 0.9 % (0-4); Hematocrit 47.3 % (42.0-52.0); Hemoglobin 15.7 g/dl (14.0-18.0); Imm Gran Abs Auto 0.03 X10*3/uL (0.00-0.03); Imm Gran Pct Auto 0.3 % (0.0-0.4); Lymphocytes Absolute Auto 2.9 X10*3/uL (1.2-4.9); Mean Corpuscular HGB Conc 33.2 g/dl (31.0-36.0); Mean Corpuscular Hemoglobin 29.4 pg (27.0-33.0); Mean Corpuscular Volume 88.6 fL (80.0-98.0); Monocytes Absolute Auto 0.6 X10*3/uL (0.1-1.2); Monocytes Percent Auto 7.2 % (2-11); Neutrophils Absolute Auto 4.9 x10*3/uL (2.0-8.3); Neutrophils Percent Auto 57.4 % (45-73); Platelet Count 143 X10*3/uL (160-400); Red Blood Count 5.34 X10*6/uL (4.60-5.80); Red Cell Distribution Width 13.2 % (11.0-16.0); White Blood Count 8.6 X10*3/uL (4.8-10.8)
[2023-07-24 13:32] LABS: Estimated Average Glucose 160 mg/dL; Hemoglobin A1c % 7.2 % (<6.0)
[2023-07-24 13:35] LABS: Cholesterol 145 mg/dL (<200); HDL Cholesterol 41 mg/dL (>40); LDL Cholesterol Calculated 80 mg/dL (<100); Triglycerides 122 mg/dL (<150)
[2023-07-24 13:55] LABS: Prostate Specific Antigen Scr 0.99 ng/mL (<0.05-4.0); Thyroid Stimulating Hormone 0.53 uIU/mL (0.32-4.0)
[2023-07-24 14:02] LABS: Amphetamine Screen Urine Not Detected (Not Detect); Barbiturates, Urine Not Detected (Not Detect); Benzodiazepines Screen Urine Not Detected (Not Detect); Cannabinoid Screen Urine Not Detected (Not Detect); Cocaine Screen Urine Not Detected (Not Detect); Fentanyl, urine Not Detected (Not Detect); Opiate Screen Urine Not Detected (Not Detect); Phencyclidine Screen Urine Not Detected (Not Detect)
[2023-07-24 14:11] LABS: Creatinine Urine 95.02 mg/dL; Microalbumin Urine < 5.0 mg/L
== END 2023-07-24 09:45 | disposition home or self-care (01) ==
LOC: HO.HMGCLDS 09:44
PROVIDERS: PCP Internal Medicine; Visit Provider Internal Medicine
DX: I10 Essential (primary) hypertension (principal); E78.00 Pure hypercholesterolemia, unspecified; E03.9 Hypothyroidism, unspecified; N40.0 Benign prostatic hyperplasia without lower urinary tract symptoms; E11.9 Type 2 diabetes mellitus without complications; Z12.5 Encounter for screening for malignant neoplasm of prostate
CPT/HCPCS: 80061; 80307; 82043; 82570; 83036; 84153; 84439; 84443; 85025

== ENCOUNTER → 2023-08-27 12:41 | Outpatient (BNVA) | payer MEDICARE, BC, SELFPAY | PROVIDERS: PCP Internal Medicine; Visit Provider Orthopaedic Surgery ==

== ENCOUNTER 2023-09-20 08:51 | Outpatient (REF) | payer BC, SELFPAY ==
[2023-09-20 11:07] LABS: MANUAL DIFF FLAG NO
[2023-09-20 11:11] LABS: Basophils Percent Auto 0.4 % (0-2); Eosinophils Absolute Auto 0.1 X10*3/uL (0.0-0.4); Eosinophils Percent Auto 1.6 % (0-4); Hematocrit 44.4 % (42.0-52.0); Hemoglobin 14.7 g/dl (14.0-18.0); Imm Gran Abs Auto 0.02 X10*3/uL (0.00-0.03); Imm Gran Pct Auto 0.3 % (0.0-0.4); Lymphocytes Absolute Auto 2.8 X10*3/uL (1.2-4.9); Lymphocytes Percent Auto 37.6 % (20-40); Mean Corpuscular HGB Conc 33.1 g/dl (31.0-36.0); Mean Corpuscular Hemoglobin 29.2 pg (27.0-33.0); Mean Corpuscular Volume 88.3 fL (80.0-98.0); Mean Platelet Volume 10.6 fL (9.4-12.4); Monocytes Absolute Auto 0.5 X10*3/uL (0.1-1.2); Monocytes Percent Auto 6.3 % (2-11); Neutrophils Percent Auto 53.8 % (45-73); Platelet Count 198 X10*3/uL (160-400); Red Blood Count 5.03 X10*6/uL (4.60-5.80); Red Cell Distribution Width 13.2 % (11.0-16.0); White Blood Count 7.4 X10*3/uL (4.8-10.8)
[2023-09-20 11:24] LABS: Estimated Average Glucose 157 mg/dL; Hemoglobin A1c % 7.1 % (<6.0)
[2023-09-20 11:31] LABS: Anion Gap 12 (12-20); Blood Urea Nitrogen 16 mg/dL (9-16); Calcium 9.4 mg/dL (8.4-10.2); Carbon Dioxide 27 mmol/L (22-29); Chloride 103 mmol/L (96-108); Estimated Glomerular Filt Rate > 60; Glucose Random 170 mg/dL (60-115); Potassium 4.3 mmol/L (3.3-5.1); Sodium 138 mmol/L (135-145)
== END 2023-09-20 08:52 | disposition home or self-care (01) ==
LOC: HO.HMGCLDS 08:51
PROVIDERS: PCP Internal Medicine; Visit Provider Orthopaedic Surgery
DX: Z01.812 Encounter for preprocedural laboratory examination (principal); M17.12 Unilateral primary osteoarthritis, left knee
CPT/HCPCS: 36415; 80048; 83036; 85025

== ENCOUNTER 2023-11-19 13:00 | Outpatient (REF) | payer BC, SELFPAY ==
--- NOTE | ~2023-11-19 | XR_ITS ---
EXAMINATION: XR HAND, LEFT CLINICAL INFORMATION: Pain in left hand COMPARISON: None available. TECHNIQUE: PA, lateral, and oblique views of the left hand. FINDINGS: The bones are intact. No fracture. There is mild minor ulnar variance there is marked narrowing with marginal osteophyte formation of the PIP joint of the ring finger. The radiocarpal joint is also narrow. No erosions or soft tissue calcifications. XR/XR hand LT min 3V IMPRESSION: Marked osteoarthritis of the PIP joint of the ring finger.
== END 2023-11-19 13:01 | disposition home or self-care (01) ==
LOC: HO.HOSX 13:00
PROVIDERS: PCP Internal Medicine; Visit Provider Orthopaedic Surgery
DX: M19.042 Primary osteoarthritis, left hand (principal); R20.0 Anesthesia of skin
CPT/HCPCS: 73130; 99212

== ENCOUNTER 2023-11-19 13:00 | Outpatient (AMB) | payer BC, SELFPAY ==
[2023-11-19 13:26] VITALS: BMI 28.1
--- NOTE | 2023-11-19 13:26 | A.OFFVIS_ITS ---
Intake Vital Signs 11/19/23 13:26 Height 5 ft 6 in Weight 174 lb BMI 28.1 Intake Visit Reasons: New problem/ left ring finger Intake Note: Jose Carlos 78 yr old male who is left hand dominant presents today for a new Problem visit for his left hand ring finger pain. Patient explains h ehas pain in his PIP joint. Take Aleve with little relief. States his PIP joint swells and prevent him from fully bending his finger. NO injury he can recall. States he has numbness and tingling in bilateral hand and left is worse. No EMG done. Denies any locking of finger. Last A1C was done on 09/2023 @ 7.1. Allergies No Known Allergies Allergy (Verified 11/19/23 13:32) HPI New problem/ left ring finger HPI Details Jose Carlos is a 78 year old right hand dominant Diabetic man who presents with complaints of left ring finger pain. He complains of pain and swelling in his left ring finger, he says this is primarily around his knuckle. He says he cannot wear his wedding ring due to th is swelling. He says when it is swollen he has difficulties making a closed fist. He complains of bilateral hand numbness, primarily at night, L>R. 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 Review of Systems Const All systems reviewed & are unremarkable except as noted in HPI and below Physical Exam Vital Signs: BMI result Body Mass Index 28.1 Const General: cooperative, healthy appearing and no acute distress Orientation/consciousness: patient oriented x3 HEENT Head: Yes normocephalic and Yes atraumatic Eyes EOM: EOMs intact bilaterally Resp Effort & Inspection: normal respiratory effort and able to speak in complete sentences Cardio Jugular venous distension: no JVD Skin General skin exam: turgor normal Rashes: no rashes Neuro General: patient oriented x3 Extrem Other: Evaluation of Left Upper Extremity: The patient is alert, oriented, and in no acute distress Neuro: Median, Ulnar, Radial nerves motor and sensory intact and sensation is normal to the tips of all digits Vascular: Cap refill brisk ROM: He can bring all of his fingers close to a fist and back into full extension. No locking or catching. No tenderness over the ring finger A1 francisco javier. He demonstrates that when he gets pain it is over the dorsal aspect of the finger across the dorsum of the PIP joint, and tends to hurt more when he brings his finger close to a fist. He says it feels better today because he has been on some Advil for shoulder pain. PIP joint is stable on exam. Mild enlargement of the PIP joint Skin: No lacerations or abrasions. General: No Ecchymosis. No Erythema or evidence of infection. Radiographs: 3 views of the left hand, with attention to the ring finger, were taken and viewed by me today in clinic. They show no fractures or dislocations. He has some evidence of early osteoarthritis in the PIP joints and some radha-articular erosions seen about the PIP joints of the index middle ring and small fingers. Psych Appearance: grossly normal Affect: normal affect Attitude: cooperative Assessment & Plan Assessment & Plan (1) Bilateral hand numbness: Code(s): R20.0 - Anesthesia of skin (2) Osteoarthritis of left ring finger: Code(s): M19.042 - Primary osteoarthritis, left hand Plan Assessment & Plan: 1. Left ring finger osteoarthritis Primarily in the PIP joint I educated him about this condition I discussed non-operative treatment options I recommend activity modification, he should work on ROM exercises at home, and consider using assistive deices for daily activities, especially in areas such as the kitchen. 2. Bilateral hand numbness In the median nerve distribution Intermittent, but daily, worse at night I ordered a NCS to assess for peripheral nerve compression He will follow up when completed for review Scribed for Jo Ann Swenson MD by Kian Newman, medical officer psychiatry, on 11/19/23 at 1:30 PM, EST. Orders: Orders XR hand LT min 3V Today M79.642 - Pain in left hand NE nerve conduction velocity Today R20.0 - Anesthesia of skin, R20.2 - Paresthesia of skin Coding Level of Care Code New Pt Level 3 (18087) Diagnoses Bilateral hand numbness R20.0 Osteoarthritis of left ring finger M19.042
== END 2023-11-19 13:58 | disposition home or self-care (01) ==
PROVIDERS: PCP Internal Medicine; Visit Provider Orthopaedic Surgery
DX: M19.042 Primary osteoarthritis, left hand (principal); R20.0 Anesthesia of skin
CPT/HCPCS: 99213

== ENCOUNTER 2023-12-19 13:40 | Outpatient (REF) | payer BC, SELFPAY ==
--- NOTE | 2023-12-19 | EMG_ITS ---
Chief complaint: Hand numbness especially at night Reason for referral: Evaluate for Carpal Tunnel Syndrome Referred by: Dr. Swenson Procedure done: Bilateral upper extremities NCS/EMG Precautions and/or limitations: None The limb temperature was monitored continuously and remained between 32-36 degrees C during the performance of the NCS. Nerve Conduction Studies Anti Sensory Summary Table ?Stim Site NR Onset (ms) Norm Onset (ms) Peak (ms) Norm Peak (ms) O-P Amp (?V) Norm O-P Amp Site1 Site2 Delta-0 (ms) Dist (cm) Raffy (m/s) Norm Raffy (m/s) Left Median Anti Sensory (2nd Digit) Wrist ? 2.7 3.9 <3.6 17.9 >10 Wrist 2nd Digit 2.7 14.0 52 Right Median Anti Sensory (2nd Digit) Wrist ? 2.8 3.8 <3.6 19.8 >10 Wrist 2nd Digit 2.8 14.0 50 Right Radial Anti Sensory (Thumb) Forearm ? 1.5 2.1 <3.1 36.3 Forearm Thumb 1.5 0.0 Left Ulnar Anti Sensory (5th Digit) Wrist ? 2.3 3.2 <3.7 33.6 >15.0 Wrist 5th Digit 2.3 14.0 61 Right Ulnar Anti Sensory (5th Digit) Wrist ? 2.4 3.0 <3.7 18.3 >15.0 Wrist 5th Digit 2.4 14.0 58 Motor Summary Table ?Stim Site NR Onset (ms) Norm Onset (ms) O-P Amp (mV) Norm O-P Amp iAmp (mV) Amp (1st) (%) Site1 Site2 Delta-0 (ms) Dist (cm) Raffy (m/s) Norm Raffy (m/s) Left Median Motor (Abd Poll Brev) Wrist ? 3.9 <3.9 5.5 >4.5 7.8 100.0 Elbow Wrist 3.5 21.0 60 >45 Elbow ? 7.4 6.0 8.0 109.1 Right Median Motor (Abd Poll Brev) Wrist ? 4.5 <3.9 7.1 >4.5 8.3 100.0 Elbow Wrist 3.9 20.0 51 >45 Elbow ? 8.4 7.5 9.0 105.6 Left Ulnar Motor (Abd Dig Minimi) Wrist ? 2.0 <3.0 8.1 >5 9.7 100.0 B Elbow Wrist 4.3 20.0 47 >45 B Elbow ? 6.3 7.9 9.5 97.5 A Elbow B Elbow 1.8 10.0 56 >45 A Elbow ? 8.1 7.7 9.4 95.1 Right Ulnar Motor (Abd Dig Minimi) Wrist ? 2.9 <3.0 7.2 >5 8.6 100.0 B Elbow Wrist 3.5 19.0 54 >45 B Elbow ? 6.4 6.3 7.8 87.5 A Elbow B Elbow 0.9 10.0 111 >45 A Elbow ? 7.3 6.2 7.7 86.1 EMG ?Side Muscle Nerve Root Ins Act Fibs Psw Amp Dur Poly Recrt Int Pat Comment Right 1stDorInt Ulnar C8-T1 Nml Nml Nml Nml Nml 0 Nml Complete Right FlexCarRad Median C6-7 Nml Nml Nml Nml Nml 0 Nml Complete Right Biceps Musculocut C5-6 Nml Nml Nml Nml Nml 0 Nml Complete Right Triceps Radial C6-7-8 Nml Nml Nml Nml Nml 0 Nml Complete Right Deltoid Axillary C5-6 Nml Nml Nml Nml Nml 0 Nml Complete Left 1stDorInt Ulnar C8-T1 Nml Nml Nml Nml Nml 0 Nml Complete Left FlexCarRad Median C6-7 Nml Nml Nml Nml Nml 0 Nml Complete Left Biceps Musculocut C5-6 Nml Nml Nml Nml Nml 0 Nml Complete Left Triceps Radial C6-7-8 Nml Nml Nml Nml Nml 0 Nml Complete Left Deltoid Axillary C5-6 Nml Nml Nml Nml Nml 0 Nml Complete FINDINGS: Right median motor nerve showed prolonged distal latency, normal amplitude and normal conduction velocity. Bilateral median sensory nerves showed prolonged peak latency. All other nerves tested were within normal. Concentric needle EMG was performed in selected muscles of the bilateral upper extremities. Study did not reveal signs of electric abnormalities as shown in the table below. IMPRESSION: 1. This is an abnormal study. 2. There is electrodiagnostic evidence for right moderate-severe and left mild median neuropathy at the wrist, consistent with carpal tunnel syndrome. 3. There is no electrodiagnostic evidence for ulnar neuropathy, brachial plexopathy, or cervical radiculopathy. Thank you for your kind referral. Alaina Lazaro MD, AMANDA Board Certified, [place] Board [employer] and Rehabilitation (ABPMR) Board Certified, [place] Board of Electrodiagnostic Medicine (ABEM) CODIN 81755 x 2 MTDD
== END 2023-12-19 13:41 | disposition home or self-care (01) ==
LOC: HO.NEURO 13:40
PROVIDERS: PCP Internal Medicine; Visit Provider Orthopaedic Surgery
DX: R20.0 Anesthesia of skin (principal); R20.2 Paresthesia of skin
CPT/HCPCS: 95886; 95911

== ENCOUNTER 2023-12-31 09:50 | Outpatient (REF) | payer BC, SELFPAY ==
[2023-12-31 13:48] LABS: Appearance Urine Clear; Color Urine Dark Yellow; Glucose Urine UA Negative (Negative); Leukocyte Esterase Urine Negative (Negative); Nitrite Urine Negative (Negative); PH 6.5 (5.0-9.0); Urine Blood Negative (Negative); Urine Ketones Negative (Negative); Urine Protein Negative (Neg-Trace)
[2023-12-31 14:26] LABS: Alanine Aminotransferase 15 U/L (0-40); Albumin Level 4.1 g/dL (3.5-5.0); Alkaline Phosphatase 58 U/L (39-117); Anion Gap 10 (12-20); Aspartate Amino Transferase 18 U/L (5-37); Bilirubin Total 0.6 mg/dL (0.0-1.0); Blood Urea Nitrogen 18 mg/dL (9-16); Calcium 9.8 mg/dL (8.4-10.2); Carbon Dioxide 30 mmol/L (22-29); Chloride 101 mmol/L (96-108); Estimated Glomerular Filt Rate > 60; Glucose Random 144 mg/dL (60-115); Potassium 4.2 mmol/L (3.3-5.1); Sodium 137 mmol/L (135-145); Total Protein 7.4 g/dL (6.5-8.0)
[2023-12-31 14:27] LABS: Free T4 (Free Thyroxine) 1.09 ng/dL (0.71-1.85); Thyroid Stimulating Hormone 1.01 uIU/mL (0.32-4.0)
[2023-12-31 14:32] LABS: Creatinine Urine 118.58 mg/dL; Microalbum/Creatinine Ratio Ur 7.5 ug/mg cr (<30)
[2023-12-31 15:10] LABS: Estimated Average Glucose 166 mg/dL; Hemoglobin A1c % 7.4 % (<6.0)
== END 2023-12-31 09:51 | disposition home or self-care (01) ==
LOC: HO.HMGCLDS 09:50
PROVIDERS: PCP Internal Medicine; Visit Provider Internal Medicine
DX: I10 Essential (primary) hypertension (principal); E03.9 Hypothyroidism, unspecified; E11.9 Type 2 diabetes mellitus without complications; K21.9 Gastro-esophageal reflux disease without esophagitis
CPT/HCPCS: 36415; 80053; 81003; 82043; 82570; 83036; 84439; 84443

== ENCOUNTER 2024-08-23 11:33 | Outpatient (REF) | payer BC, SELFPAY ==
[2024-08-23 13:23] LABS: MANUAL DIFF FLAG NO
[2024-08-23 13:33] LABS: Basophils Percent Auto 0.3 % (0-2); Eosinophils Absolute Auto 0.1 X10*3/uL (0.0-0.4); Eosinophils Percent Auto 0.9 % (0-4); Hematocrit 42.8 % (42.0-52.0); Hemoglobin 14.9 g/dl (14.0-18.0); Imm Gran Abs Auto 0.03 X10*3/uL (0.00-0.03); Imm Gran Pct Auto 0.4 % (0.0-0.4); Lymphocytes Absolute Auto 2.8 X10*3/uL (1.2-4.9); Lymphocytes Percent Auto 36.3 % (20-40); Mean Corpuscular HGB Conc 34.8 g/dl (31.0-36.0); Mean Corpuscular Hemoglobin 30.2 pg (27.0-33.0); Mean Corpuscular Volume 86.6 fL (80.0-98.0); Mean Platelet Volume 10.4 fL (9.4-12.4); Monocytes Absolute Auto 0.6 X10*3/uL (0.1-1.2); Monocytes Percent Auto 7.9 % (2-11); Neutrophils Absolute Auto 4.2 x10*3/uL (2.0-8.3); Neutrophils Percent Auto 54.2 % (45-73); Platelet Count 230 X10*3/uL (160-400); Red Blood Count 4.94 X10*6/uL (4.60-5.80); Red Cell Distribution Width 13.3 % (11.0-16.0); White Blood Count 7.7 X10*3/uL (4.8-10.8)
[2024-08-23 13:42] LABS: Estimated Average Glucose 151 mg/dL; Hemoglobin A1C 195.6483 umol/L; Hemoglobin A1c % 6.9 % (<6.0); Total Hemoglobin (HGBA1C) 3749.2155 umol/L
[2024-08-23 14:37] LABS: Alanine Aminotransferase 17 U/L (0-40); Albumin Level 4.3 g/dL (3.5-5.0); Alkaline Phosphatase 62 U/L (39-117); Anion Gap 11 (12-20); Aspartate Amino Transferase 19 U/L (5-37); Bilirubin Total 0.4 mg/dL (0.0-1.0); Blood Urea Nitrogen 17 mg/dL (9-16); Calcium 9.8 mg/dL (8.4-10.2); Carbon Dioxide 28 mmol/L (22-29); Chloride 102 mmol/L (96-108); Estimated Glomerular Filt Rate > 60; Glucose Random 106 mg/dL (60-115); Potassium 4.3 mmol/L (3.3-5.1); Sodium 137 mmol/L (135-145); Total Protein 7.6 g/dL (6.5-8.0)
[2024-08-23 14:45] LABS: Microalbum/Creatinine Ratio Ur 7.4 ug/mg cr (<30)
== END 2024-08-23 11:34 | disposition home or self-care (01) ==
LOC: HO.10HDL 11:33
PROVIDERS: Visit Provider Internal Medicine
DX: E11.9 Type 2 diabetes mellitus without complications (principal); I10 Essential (primary) hypertension; K57.90 Diverticulosis of intestine, part unspecified, without perforation or abscess without bleeding
CPT/HCPCS: 36415; 80053; 82043; 82570; 83036; 85025

== ENCOUNTER 2024-12-13 08:06 | Outpatient (REF) | payer MEDICARE, BC, SELFPAY ==
--- NOTE | ~2024-12-13 | XR_ITS ---
EXAMINATION: XR SHOULDER 2 OR MORE VIEWS RIGHT HISTORY: M25.511 - Pain in right shoulder COMPARISON: There are no prior studies available for comparison. FINDINGS: Three views of the right shoulder are submitted. Osseous mineralization is normal. There is no fracture or dislocation. The glenohumeral joint is maintained. There is moderate osteoarthritis of the AC joint with joint space narrowing and osteophyte formation. Soft tissue calcifications adjacent to the humeral head are likely related to the rotator cuff. XR/XR shoulder RT min 2V IMPRESSION: Moderate osteoarthritis of the AC joint. Probable rotator cuff calcifications. Electronically signed by: Sumit Dumont MD 12/13/2024 01:54 PM EST
== END 2024-12-13 08:07 | disposition home or self-care (01) ==
LOC: HO.HOSX 08:06
PROVIDERS: Visit Provider Physician Assistant
DX: M25.511 Pain in right shoulder (principal); M19.011 Primary osteoarthritis, right shoulder
CPT/HCPCS: 20610; 73030; 99212; J1010; J2003

== ENCOUNTER 2024-12-13 11:01 | Outpatient (AMB) | payer MEDICARE, BC, SELFPAY ==
--- NOTE | 2024-12-13 11:06 | A.OFFVIS_ITS ---
Vital Signs 12/13/24 11:10 Height 5 ft 6 in Weight 165 lb BMI 26.6 Intake Visit Reasons: New prob- Right shoulder injury DOI 10/2024 Intake Note: Jose Carlos is a 79 year old left hand dominant male who presents today for a new problem visit with complaints of right shoulder pain. Patient reports that he returned from a [place] on 10[place]17[place]24, when he was taking luggage out of the car he injured his shoulder. He explains that since then his shoulder has been getting better but since using the snowblower yesterday has triggered his pain to return. He has increased pain with lateral lifting and reaching above should height. He is taking Aleve which is helpful. Denies numbness and tingling. Allergies No Known Allergies Allergy (Verified 12/13/24 11:12) HPI HPI New prob- Right shoulder injury DOI 10/2024: Details: 79-year-old male. Presents to the office today for pain in the right shoulder. He states most of his pain is with lifting type activities. He has no pain with sleeping. No weakness. He does remember lifting luggage and having some pain in the shoulder which did subside however using the college coach over the weekend did cause some irritation of the shoulder. 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 Full range of motion in all planes. He has 5/5 rotator cuff strength with mild discomfort. Positive Roque. Neurovascularly intact. Office Procedures AMB Joint Injection/Aspiration Joint Injection/Aspiration Primary Site: right shoulder Prep: site was prepped using aseptic technique, ethochloride spray was applied and injection warnings given Injected: 80 mg of, DepoMedrol, with 8 mL of, 1% plain lidocaine and in the subcromial space Approach Used: posterolateral Procedure: The patient tolerated the procedure well and there was some relief with the local anesthesia Coding 94151 - Glenohumeral/Tronchanteric Bursa/Intraarticular Procedure code (CPT) selection complete Results Reviewed Results Reviewed: X-rays of the right shoulder obtained in the office today and reviewed by me ana SALAZAR joint arthritis. Assessment & Plan Assessment & Plan (1) Tendinitis of right rotator cuff: Code(s): M75.81 - Other shoulder lesions, right shoulder Category: Medical Plan: We discussed options today, which include steroid injection. The patient did consent to move forward with the injection, which was tolerated well.? I recommended rest, ice and elevation and OTC antiinflammatories prn for d iscomfort. If symptoms persist over the next 6-8 weeks, they will contact our office, otherwise, prn Orders: Orders XR shoulder RT min 2V Today M25.511 - Pain in right shoulder Coding Level of Care Code Est Pt Level 3 (42792) Complex EM visit Add On G2211 Diagnoses Tendinitis of right rotator cuff M75.81 CPT Codes Coding - Joint 7: 67964 - Glenohumeral/Tronchanteric Bursa/Intraarticular ([id number])
[2024-12-13 11:10] VITALS: BMI 26.6
--- OUTSIDE RECORDS SUMMARY | 2024-12-13 12:08 | XMS_ITS | Clinical Summary ---
Author Organization [facility] Address [phone] [place] [address] Care Team Providers Care Rouge Presser Name Role Phone Jonathon Hammond MD Primary Care Provider Yong Alonzo MD Unavailable [phone] Social History Tobacco Use Types Packs/Day Years Used Date Smoking Tobacco: Never Sex and Gender Information Value Date Recorded Sex Assigned at Not on file Gender Identity Not on file Sexual Orientation Not on file Last Filed Vital Signs Vital Sign Reading Time Taken Comments Blood Pressure 123/81 10/06/2015 12:58 PM EST Pulse 80 10/06/2015 12:58 PM EST Temperature 36.7 ??C (98 ??F) 10/06/2015 12:58 PM EST Respiratory Rate 18 10/06/2015 12:58 PM EST Oxygen Saturation - - Inhaled Oxygen Concentration - - Weight 82.3 kg (181 lb 6.4 oz) 10/06/2015 12:58 PM EST Height 167.6 cm (5' 6 ) 10/06/2015 12:58 PM EST Body Mass Index 29.28 10/06/2015 12:58 PM EST Plan of Treatment Not on file Medical Devices Not on file Care Teams Rouge Presser Relationship Specialty Start Date End Date Jonathon Hammond MD [address] [place] [address] [place] [address] PCP - General Internal Medicine 09/05/15 Yong Alonzo MD [address] [place] [id number] [email or web address] Medical Oncology 01/27/16 Additional Source Comments The information contained in this document represents components of the legal health record. It is not the complete legal health record.[facility]
== END 2024-12-13 11:29 | disposition home or self-care (01) ==
PROVIDERS: PCP Internal Medicine; Visit Provider Physician Assistant
DX: M75.81 Other shoulder lesions, right shoulder (principal)
CPT/HCPCS: 20610; 99213

== ENCOUNTER → 2024-12-13 11:02 | Outpatient (BNV) | payer MEDICARE, BC, SELFPAY | PROVIDERS: Visit Provider Radiology Diagnostic Radiology | DX: M25.511 Pain in right shoulder (principal); M19.011 Primary osteoarthritis, right shoulder | CPT/HCPCS: 73030 ==

== ENCOUNTER 2025-03-02 09:52 | Outpatient (AMB) | payer MEDICARE, BC, SELFPAY ==
[2025-03-02 10:43] VITALS: BP 120/70; PULSE 68; TEMP 36.4; O2SAT 97; BMI 26.0
--- NOTE | 2025-03-02 10:43 | A.OFFPC_ITS ---
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 Required: No Accompanied by: Self / Same As Patient Allergies No Known Allergies Allergy (Verified 03/02/25 10:46) Medication List - Last Reconciled 03/02/25 by ELIU Galicia alprazolam 0.25 mg PO BEDTIME PRN fluticasone furoate 50 mcg/actuation inhalation hydrochlorothiazide 12.5 mg PO DAILY levothyroxine 100 mcg PO DAILY lisinopril 5 mg PO DAILY magnesium 250 mg PO DAILY metformin 250 mg PO DAILY simvastatin 40 mg PO DAILY walker Folding Front wheeled walker Tobacco use date assessed: 03/02/25 Fall risk assessment: No Falls in past year Last assessed Fall Risk: 03/02/25 Dental Screening Dental Screen Date: 03/02/25 Did you have a dental visit in the last 12 months?: Yes Did you have a dental problem in the last 6 months where you did not have access to dental care?: No HPI HPI Comments History of Present Illness Details History of Present Illness The patient is a 79-year-old male presenting for routine management of chronic conditions, including diabetes mellitus, osteoarthritis, hypertension, chronic rhinosinusitis, and cataracts. For diabetes management, he is on a low dose of metformin (250 mg daily), with stable glucose levels and a generally compliant diabetic diet, punctuated by occasional non-compliance. He maintains a physical activity regimen of attending the gym twice weekly to support joint health and manage osteoarthritis symptoms in the knees and shoulder. He had considered knee surgery, but therapy led to sufficient improvement, permitting continued effective exercise. For arthritis discomfort, he utilizes Aleve and was advised to use the topical Voltaren gel to potentially ease symptoms without affecting systemic health. The patient reports ongoing rhinosinusitis symptoms, characterized by retained sinus discharges devoid of pain, following recovery from a past sinus infection. He has been advised on using a nasal rinse and possesses Flonase despite minimal allergy manifestations. Hypertension is managed with lisinopril, with no recent concerns or necessary changes. Cataract management involves monitoring, with potential surgical intervention forecasted in the future, based on disease progression. Overall, he expresses satisfactory control over his chronic health conditions, awaiting further assessments and screenings to guide continued treatment strategies. Review of Systems - General: Reports good general health. - Endocrine: Reports stable blood sugar levels under current metformin dosage. - Musculoskeletal: Reports knee and shou lder osteoarthritis. Denies recent knee pain following physical therapy. - Cardiovascular: Denies chest pain or p alpitations. - Respiratory: Denies cough or shortness of breath. - Genitourinary: Denies any urinary comp laints. - Neurologic: Denies headaches or dizzin ess. - ENT: Reports residual sinus discharge post-infection. Denies pain. - Ophthalmologic: Reports having catarac ts; no immediate need for surgery. Vital Signs Reviewed Health Maintenance - Discussed adherence to diabetic diet a nd exercise. - Reviewed benefits of topical NSAIDs fo r arthritis pain management. - Introduced use of sinus rinses for chr onic sinusitis. - Reminded to start preparations for cat aract monitoring and potential future surgery. Physical Exam Constitutional: Awake and alert, no apparent distress Heart: Regular rate and rhythm, S1S2, no murmurs, no edema Lungs: Clear to auscultation bilaterally, no wheezing Extremities: No calf tenderness Skin: Warm and dry Neuro: Alert and oriented x 3 Assessment and Plan 1. Diabetes Mellitus Type 2 The patient's diabetes is stable at 250 mg daily dose of metformin. A follow-up A1c will be assessed to ensure continued glucose control. Dietary adherence and exercise remain essential. 2. Osteoarthritis of the right knee and right shoulder Imaging reviewed. Current exercise regimen and NSAID use effectively manage symptoms. Advise on Voltaren gel for pain relief. 3. Hypertension Lisinopril management to continue, pending normal renal function tests. 4. Chronic Rhinosinusitis Advise nasal rinses and consider Flonase her symptom management 5. Cataracts Continue monitoring, with potential future surgery indicated based on regular ophthalmologic evaluations. [facility] Medical History (Updated 03/02/25 @ 13:50 by ELIU Galicia) Cataract Hypothyroidism Type 2 diabetes mellitus Hypercholesteremia Hypertension Surgical History History of colonoscopy (~10/25/19) History of left knee surgery Family History (Updated 03/02/25 @ 10:52 by Amy Stratton MA) Mother No problems noted. Father No problems noted. 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 1. Little interest or pleasure in doing things: not at all 2. Feeling down, depressed, or hopeless: not at all 3. Trouble falling or staying asleep, or sleeping too much: not at all 4. Feeling tired or having little energy: not at all 5. Poor appetite or overeating: not at all 6. Feeling bad about yourself - or that you are a failure or have let yourself or your family down: not at all 7. Trouble concentrating on things, such as reading the newspaper or watching television: not at all 8. Moving or speaking so slowly that other people could have noticed. Or the opposite - being so fidgety or restless that you have been moving around a lot more than usual: not at all 9. Thoughts that you would be better off or of hurting yourself in some way: not at all Total score: 0 Source: Developed by Drs. Sumit Barrett, Denita Guerrero, Lester Alcantara and colleagues, with an educational leonidas from [employer]. Thrive Questionnaire Date Thrive assessed: 03/02/25 I am a: Patient Within the past 12 months, did the food you bought not last and you didn't have the money to get more?: Never true Within the past 12 months, did you worry whether your food would run out before you got money to buy more?: Never true Do you have trouble paying for medicines?: No Do you have trouble getting transportation to medical appointments?: No Do you have trouble paying your heating and electricity bill?: No Do you have trouble taking care of your child, family member or friend?: No Do you have trouble with day-to-day activities such as bathing, preparing meals, shopping, managing finances, etc.?: No Are you currently unemployed and looking for a job?: No Are you interested in more education?: No THRIVE Score: 0 AUDIT C Alcohol Use Questionnaire (AUDIT-C) 1. How often do you have a drink containing alcohol?: Never 3. How often do you have six or more drinks on one occasion?: Never Total Score: 0 HÉCTOR-7 AMB Questionnaire HÉCTOR-7 Date HÉCTOR - 7 assessed: 03/02/25 Feeling nervous, anxious, or on edge: 0 = Not at all Not being able to stop or control worryin = Not at all Worrying too much about different things: 0 = Not at all Trouble relaxin = Not at all Being so restless that it is hard to sit still: 0 = Not at all Becoming easily annoyed or irritable: 0 = Not at all Feeling afraid as if something awful might happen: 0 = Not at all Total ÉHCTOR-7 score (0-4 normal; 5-9 mild; 10-14 moderate; 15-21 severe): 0 Source: Developed by Drs. Sumit Barrett, Denita Guerrero, Lester Alcantara and colleagues, with an educational leonidas from [employer]. Physical exam (Primary Care) Vital Signs: Last Vital Signs Temp 97.6 F 03/02/25 10:43 Pulse 68 03/02/25 10:43 BP 120/70 03/02/25 10:43 Pulse Ox 97 03/02/25 10:43 Oxygen Delivery Method Room Air 03/02/25 10:43 BMI result Body Mass Index 26.0 Tobacco/Smoking Status: Tobacco use Status Tobacco use date assessed 03/02/25 03/02/25 10:53 Patient Tobacco Use Status Never used Tobacco 03/02/25 10:53 e-Cigarette/Vaping Use Never Used 03/02/25 10:53 PHQ-9: PHQ-9 Score PHQ-9: Total score 0 03/02/25 13:45 Thrive Assessment: Date of Thrive Assessment Date Thrive assessed 03/02/25 03/02/25 10:53 Coding Level of Care Code Tele New Pt Level 4 (40184) Complex EM visit Add On G2211 Diagnoses Hypertension I10 Hypercholesteremia E78.00 Type 2 diabetes mellitus E11.9 Type 2 diabetes mellitus with cataract E11.36 Assessment & Plan Assessment & Plan (1) Hypertension: Code(s): I10 - Essential (primary) hypertension Category: Medical Plan: Controlled. Continue lisinopril. BNP ordered (2) Hypercholesteremia: Code(s): E78.00 - Pure hypercholesterolemia, unspecified Category: Medical Plan: Lipid panel ordered. Continue simvastatin (3) Type 2 diabetes mellitus: Code(s): E11.9 - Type 2 diabetes mellitus without complications Category: Medical Plan: Hemoglobin A1c ordered. Continue metformin (4) Type 2 diabetes mellitus with cataract: Code(s): E11.36 - Type 2 diabetes mellitus with diabetic cataract Plan: Continue following with Ophthalmology Plan Follow-up in 4 months with labs completed prior to visit Orders: Orders Basic Metabolic Panel Today E11.9 - Type 2 diabetes mellitus without complications, I10 - Essential (primary) hypertension Complete Blood Count Auto Diff Today E05.90 - Thyrotoxicosis, unspecified without thyrotoxic crisis or storm, E11.9 - Type 2 diabetes mellitus without complications, I10 - Essential (primary) hypertension Basic Metabolic Panel 5 Months E03.9 - Hypothyroidism, unspecified, E11.9 - Type 2 diabetes mellitus without complications, E78.00 - Pure hypercholesterolemia, unspecified, I10 - Essential (primary) hypertension TSH reflex Free T4 5 Months E03.9 - Hypothyroidism, unspecified, E11.9 - Type 2 diabetes mellitus without complications, E78.00 - Pure hypercholesterolemia, unspecified, I10 - Essential (primary) hypertension Hemoglobin A1c 5 Months E11.9 - Type 2 diabetes mellitus without complications Hemoglobin A1c Today E11.9 - Type 2 diabetes mellitus without complications TSH reflex Free T4 Today E05.90 - Thyrotoxicosis, unspecified without thyrotoxic crisis or storm Lipid Panel Today E11.9 - Type 2 diabetes mellitus without complications Microalbumin, Random (w Creat) Today E11.9 - Type 2 diabetes mellitus without complications Lipid Panel 5 Months E03.9 - Hypothyroidism, unspecified, E11.9 - Type 2 diabetes mellitus without complications, E78.00 - Pure hypercholesterolemia, unspecified, I10 - Essential (primary) hypertension Medications: New hydrochlorothiazide 12.5 mg (1/2 x 25 mg) PO DAILY 90 tabs 1RF levothyroxine 100 mcg PO DAILY 90 caps 1RF simvastatin 40 mg PO DAILY 90 tabs 1RF lisinopril 5 mg PO DAILY 90 tabs 1RF magnesium 250 mg PO DAILY 90 tabs 1RF metformin 250 mg (1/2 x 500 mg) PO DAILY 90 tabs 1RF Patient Instructions: Use voltaren/diclofenac gel/cream on knee/shoulder as needed. Can use up to 4 times daily
--- OUTSIDE RECORDS SUMMARY | 2025-03-02 10:47 | XMS_ITS | Patient Health Record ---
Author Organization [facility] Address [address] [facility] [place] [address] Care Team Providers Care Mortgage Loan Closer Name Role Phone Ferny Angeles Primary Care Provider Jennifer Smallwood Unavailable [phone] Reason For Referral No Information Social History Tobacco Use: Social History Observation Description Date Details (start date - stop date) Never Smoker NA - NA Tobacco use other than smoking: Question Answer Notes Are you an other tobacco user? No Tobacco Control (Standard) Question Answer Notes Tobacco use: Nonsmoker Additional Findings: Tobacco non-user Current no nsmoker AUDIT-C (Standard) Question Answer Notes Did you have a drink contain ing alcohol in the past year? Yes How often did you have a dri nk containing alcohol in the past year? Declined to specify (0 point) How many drinks did you have on a typical day when you were drinking in the past year? Declined to specify (0 point) How often did you have six o r more drinks on one occasion in the past year? Declined to specify (0 point) Points 0 Interpretation Negative Encounters Encounter Location Date Provider Diagnosis [facility] Cresencio Burden[facility] [address] [place] [address] 02/15/2025 Jennifer Smallwood Plan Of Treatment No Information Insurance Providers Payer Name Payer Address Payer Phone Subscriber Number Group Number Insured Name Patient Relationship to Insured Coverage Start Date Coverage End Date Medicare National [employer] [address] [facility] [place] [address] [id number] Jose Carlos Alonzo Self - patient is the insured [facility] [address] [place] [address] [id number] Jose Carlos Alonzo Self - patient is the insured Medical (General) History Medical History History ICD Code Anxiety Arthritis Cancer covid-19 type II diabetes Diverticulosis High Blood Pressure sinusitis thyroid Measles
--- OUTSIDE RECORDS SUMMARY | 2025-03-02 10:47 | XMS_ITS | Clinical Summary ---
Author Organization [facility] Address [address] [place] [address] Phone Care Team Providers Care Senior Market Intelligence Consultant Name Role Phone Jonathon Hammond MD Primary Care Provider Yong Alonzo MD Unavailable Social History Tobacco Use Types Packs/Day Years [...] on file Medical [place] [id number] Alonzo, [place] Personal/Famil y Self [address] [place] [address] [place] [id number] Alonzo, [place] Personal/Famil y Self [address] [place] [address] [place] [id number] Alonzo, Jose Carlos Personal/Famil y Self [address] [place] [address] [place] [address] [place], Jose Carlos Personal/Famil y Self [address] [place] [address] [place] [id number] Alonzo, Jose Carlos Personal/Famil y Self [address] [place] [id number] Alonzo, [place] Personal/Famil y Self [address] [place] [address] [place], [place] Personal/Famil y Self [address] [place] [address] Care Teams Senior Market Intelligence Consultant Relationship Specialty Start Date End Date Jonathon Hammond MD [address] [place] [address] [place] [address] PCP - General Internal Medicine 09/05/15 Yong Alonzo MD [address] [place] [address] [email or web address] Medical Oncology 01/27/16 Additional Source Comments The information contained in this document represents components of the legal health record. It is not the complete legal health record.[facility]
--- OUTSIDE RECORDS SUMMARY | 2025-03-02 10:47 | XMS_ITS ---
Author Organization [facility] Address [address] [place] [address] Care Team Providers Care Partridge Farmer Name Role Phone Ferny Angeles Primary Care Provider [phone] Jennifer Smallwood [phone] REASON FOR VISIT cx CONTRACT ADMINISTRATION COORDINATOR 03/10 Encounters Encounter Location Date Provider Diagnosis [address] [address] 02/15/2025 Jennifer Smallwood Plan Of Treatment No Information Progress Notes * Jose Carlos BARCENAS ADOB: [birth year] (79 yo M)Acc No.[id number]:02/15/2025 Patient:?Jose Carlos BARCENAS :1945???Age:79 Y???Sex:Male Address:[address] [place] [address] * true * Date:? Generated for Printi penny/Rosalino/eTransmitting on:?03/02/2025 10:47 AM EDT
== END 2025-03-02 11:19 | disposition home or self-care (01) ==
LOC: HO.HMCHD 09:53
PROVIDERS: PCP Internal Medicine; Visit Provider Physician Assistant
DX: I10 Essential (primary) hypertension (principal); E78.00 Pure hypercholesterolemia, unspecified; E11.36 Type 2 diabetes mellitus with diabetic cataract

== ENCOUNTER → 2025-03-02 09:52 | Outpatient (BNVA) | payer MEDICARE, BC, SELFPAY | PROVIDERS: PCP Internal Medicine; Visit Provider Internal Medicine | DX: Z13.89 Encounter for screening for other disorder (principal) | CPT/HCPCS: 99202 ==

== ENCOUNTER 2025-03-02 11:29 | Outpatient (REF) | payer MEDICARE, BC, SELFPAY ==
[2025-03-02 13:01] LABS: MANUAL DIFF FLAG NO
--- OUTSIDE RECORDS SUMMARY | 2025-03-02 13:09 | XMS_ITS | Clinical Summary ---
Author Organization [facility] Address [address] [place] [address] Phone Care Team Providers Care Restaurant Mgr Name Role Phone Jonathon Hammond MD Primary Care Provider Yong Alonzo MD Unavailable [phone] Social History Tobacco Use Types Packs/Day Years [...] on file Medical [place] [id number] Alonzo, Ashby Personal/Famil y Self [address] [place] [address] [place] [address]Abhinav Alonzo, Ashby Personal/Famil y Self [address] [place] [address] [place] [address]Abhinav Alonzo, Jose Carlos Personal/Famil y Self [address] [place] [address] [place] [address] [place], Jose Carlos Personal/Famil y Self [address] [place] [address] [place] [id number] Alonzo, Jose Carlos Personal/Famil y Self [address] [place] [id number] Alonzo, Ashby Personal/Famil y Self [address] [place] [address] [place], Ashby Personal/Famil y Self [address] [place] [address] Care Teams Restaurant Mgr Relationship Specialty Start Date End Date Jonathon Hammond MD [address] [place] [address] [place] [address] PCP - General Internal Medicine 09/05/15 Yong Alonzo MD [address] [place] [address] [email or web address] Medical Oncology 01/27/16 Additional Source Comments The information contained in this document represents components of the legal health record. It is not the complete legal health record.[facility]
[2025-03-02 13:18] LABS: Basophils Percent Auto 0.4 % (0-2); Eosinophils Absolute Auto 0.1 X10*3/uL (0.0-0.4); Hemoglobin 14.9 g/dl (14.0-18.0); Imm Gran Abs Auto 0.05 X10*3/uL (0.00-0.03); Imm Gran Pct Auto 0.6 % (0.0-0.4); Lymphocytes Absolute Auto 3.5 X10*3/uL (1.2-4.9); Lymphocytes Percent Auto 42.2 % (20-40); Mean Corpuscular HGB Conc 33.9 g/dl (31.0-36.0); Mean Corpuscular Hemoglobin 29.9 pg (27.0-33.0); Mean Corpuscular Volume 88.2 fL (80.0-98.0); Mean Platelet Volume 10.1 fL (9.4-12.4); Monocytes Absolute Auto 0.6 X10*3/uL (0.1-1.2); Monocytes Percent Auto 6.7 % (2-11); Neutrophils Percent Auto 49.1 % (45-73); Platelet Count 271 X10*3/uL (160-400); Red Blood Count 4.99 X10*6/uL (4.60-5.80); Red Cell Distribution Width 13.3 % (11.0-16.0); White Blood Count 8.2 X10*3/uL (4.8-10.8)
[2025-03-02 13:26] LABS: Estimated Average Glucose 154 mg/dL; Hemoglobin A1C 206.5585 umol/L; Total Hemoglobin (HGBA1C) 3914.5149 umol/L
[2025-03-02 13:37] LABS: Anion Gap 13 (12-20); Blood Urea Nitrogen 18 mg/dL (9-16); Carbon Dioxide 27 mmol/L (22-29); Chloride 102 mmol/L (96-108); Cholesterol 106 mg/dL (<200); Estimated Glomerular Filt Rate > 60; Glucose Random 104 mg/dL (60-115); HDL Cholesterol 33 mg/dL (>40); LDL Cholesterol Calculated 56 mg/dL (<100); Potassium 4.3 mmol/L (3.3-5.1); Sodium 138 mmol/L (135-145); Triglycerides 85 mg/dL (<150)
[2025-03-02 13:41] LABS: Creatinine Urine 105.33 mg/dL; Microalbum/Creatinine Ratio Ur 6.6 ug/mg cr (<30)
[2025-03-02 13:54] LABS: TSH reflex Free T4 2.47 uIU/mL (0.32-4.0)
== END 2025-03-02 11:30 | disposition home or self-care (01) ==
LOC: HO.10HDL 11:29
PROVIDERS: Visit Provider Physician Assistant
DX: I10 Essential (primary) hypertension (principal); E05.90 Thyrotoxicosis, unspecified without thyrotoxic crisis or storm; E11.9 Type 2 diabetes mellitus without complications
CPT/HCPCS: 36415; 80048; 80061; 82043; 82570; 83036; 84443; 85025; 99202

== ENCOUNTER 2025-03-25 10:07 | Outpatient (AMB) | payer MEDICARE, BC, SELFPAY ==
--- NOTE | 2025-03-25 10:10 | A.OFFVIS_ITS ---
Vital Signs 03/25/25 10:22 Height 5 ft 6 in Weight 161 lb BMI 26.0 Intake Visit Reasons: Inj-Right shoulder cortisone-last 12/13/24 Intake Note: Jose Carlos is a 79 year old male who presents today to discuss a right shoulder injection, last injection 12/13/24. Patient reports last injection provided him with relief. States his discomfort returned a couple of weeks after his injection due to snow blowing from a snow storm. His most discomfort comes in the mornings. However the past couple of days he has not had pain. He would like to discuss moving forward with repeating injection. Allergies No Known Allergies Allergy (Verified 03/25/25 10:16) Medication List - Last Reconciled 03/25/25 by Krysten Davis PA-C alprazolam 0.25 mg PO BEDTIME PRN fluticasone furoate 50 mcg/actuation inhalation hydrochlorothiazide 12.5 mg (1/2 x 25 mg) PO DAILY levothyroxine 100 mcg PO DAILY lisinopril 5 mg PO DAILY magnesium 250 mg PO DAILY metformin 250 mg (1/2 x 500 mg) PO DAILY simvastatin 40 mg PO DAILY walker Folding Front wheeled walker HPI HPI Inj-Right shoulder cortisone-last 12/13/24: Details: 79-year-old gentleman presents to the office today for intermittent right should er pain. He states it is worse at night especially when he is reaching or pulling covers over. He is leaving for [place] and is concerned about worsening pain when he is traveling. [facility] Medical History (Updated 03/02/25 @ 13:50 by ELIU Galicia) Cataract Hypothyroidism Type 2 diabetes mellitus Hypercholesteremia Hypertension Surgical History History of colonoscopy (~10/25/19) History of left knee surgery Family History (Updated 03/02/25 @ 10:52 by Amy Stratton MA) Mother No problems noted. Father No problems noted. 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 Full range of motion in all planes. He has 5/5 rotator cuff strength with mild discomfort. Positive Roque. Neurovascularly intact. Office Procedures AMB Joint Injection/Aspiration Joint Injection/Aspiration Primary Site: right shoulder Prep: site was prepped using aseptic technique, ethochloride spray was applied and injection warnings given Injected: 80 mg of, DepoMedrol, with 8 mL of, 1% plain lidocaine and in the subcromial space Approach Used: posterolateral Procedure: The patient tolerated the procedure well and there was some relief with the local anesthesia Coding 06032 - Glenohumeral/Tronchanteric Bursa/Intraarticular Procedure code (CPT) selection complete Assessment & Plan Assessment & Plan (1) Tendinitis of right rotator cuff: Code(s): M75.81 - Other shoulder lesions, right shoulder Category: Medical Plan: We discussed options today, which include steroid injection. The patient did consent to move forward with the right shoulder injection, which was tolerated well.? I recommended rest, ice and elevation and OTC antiinflammatories prn for discomfort. If symptoms persist over the next 6-8 weeks, they will contact our office, otherwise, prn Coding Level of Care Code Est Pt Level 3 (99146) Complex EM visit Add On G2211 Diagnoses Tendinitis of right rotator cuff M75.81 CPT Codes Coding - Joint 7: 61561 - Glenohumeral/Tronchanteric Bursa/Intraarticular ([id number])
[2025-03-25 10:22] VITALS: BMI 26.0
--- OUTSIDE RECORDS SUMMARY | 2025-03-25 10:22 | XMS_ITS ---
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 Generated for Printi penny/Rosalino/eTransmitting on:?03/25/2025 10:22 AM EDT
== END 2025-03-25 11:37 | disposition home or self-care (01) ==
LOC: HO.HOS 10:08
PROVIDERS: PCP Internal Medicine; Visit Provider Physician Assistant
DX: M75.81 Other shoulder lesions, right shoulder (principal)
CPT/HCPCS: 20610; 99213

== ENCOUNTER → 2025-03-25 10:07 | Outpatient (BNVA) | payer MEDICARE, BC, SELFPAY | PROVIDERS: PCP Internal Medicine; Visit Provider Physician Assistant | DX: M75.81 Other shoulder lesions, right shoulder (principal) | CPT/HCPCS: 20610; 99212; J1010; J2003 ==

== ENCOUNTER 2025-05-03 10:52 | Outpatient (AMB) | payer MEDICARE, BC, SELFPAY ==
--- OUTSIDE RECORDS SUMMARY | 2025-03-10 04:30 | XMS_ITS ---
Author Organization [facility] Geraldine meeks [place] Address [address] [place] [address] Care Team Providers Care Cement Side Laster Name Role Phone Bridgette, Kartik Primary Care Provider Jennifer Smallwood Unavailable [phone] Medications Medication SIG (Take, Route, Frequency, Duration) [...] Negative Encounters Encounter Location Date Provider Diagnosis [facility] [address] [place] [address] 03/10/2025 Jennifer Smallwood Plan Of Treatment No Information Progress Notes * Jose Carlos ALONZO ADOB: [birth year] (79 yo M)Acc No.[id number]:03/10/2025 Progress Notes Patient: Jose Carlos FAIRBANKS A Provider: Wendy Smallwood DPM :1945 A ge:79 Y S ex:Male Date:03/10/2025 Address:[address] [place], [place] [phone] Pcp:Ferny Angeles Subjective: * Chief Complaints: * [...] enies. C ardiovascular: Pacemaker d enies. M NURSE SANE d enies. W PW d enies. C [...] Marital status: . 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 D rug/Alcohol: A SHERMAN-C (Standard) D [...] 0 03/10/2025 Generated for Yves Morejon/Sabi on: 05/03/2025 12:06 PM EDT
--- NOTE | 2025-05-03 10:54 | MHC.PC.OV ---
Vital Signs 05/03/25 10:56 05/03/25 11:01 Weight 72.575 kg BP 108/64 Blood Pressure Location Rt brachial Position Sitting Pulse 73 Pulse Source Pulse Oximeter Temp 97.3 F Temp Source Temporal Artery Scan Pulse Oximetry (%) 97 Oxygen Delivery Method Room Air Intake Visit Reasons: routine - see comments Mailroom Coordinator Required: No Accompanied by: Self / Same As Patient Allergies No Known Allergies Allergy (Verified 05/03/25 10:54) Tobacco use date assessed: 03/02/25 Dental Screening Dental Screen Date: 03/02/25 HPI HPI Comments History of Present Illness Details 79-year-old male with history of type 2 diabetes, hypertension, hypothyroidism, hyperlipidemia presents to the office today for evaluation. He is reporting a pimple like growth on his upper back that has been growing in size for the last month. He reports that his sore and itchy. He has been t trying to scratch around the lesion so as to not aggravate it. There is no bleeding or purulent drainage. He states his has looked at the lesion and she states it does not look like a typical pimple. Denies any fevers or chills. Denies any history of similar lesion. No history of skin cancers. He is also requesting evaluation of multiple irritating skin tags in the right axilla. He states these are particularly bothersome in the summer when he is sweating. ROS: General: No fevers, malaise, unintentional weight loss Skin: see hpi EXAM: Constitutional - Awake and Alert, No apparent distress Eyes - PERRL Cardiovascular - S1S2, RRR, No edema Respiratory - Normal lung expansion, Normal respiratory effort, No respiratory distress, CTA bilaterally Extremities - no calf tenderness bilaterally, no swelling Skin - Warm/Dry. Hard fixed round flesh toned nodule about 8 mm in size with cental scaling/shallow dimple mid upper back with thin erythematous ring at base. No fluctuance or drainage. Multiple skin tags about 0.5cm - 1.0 cm in length Neurological - Alert & oriented x3 Psychological - Appropriate affect [facility] Medical History (Updated 05/03/25 @ 11:27 by ELIU Galicia) Cataract Hypothyroidism Type 2 diabetes mellitus Hypercholesteremia Hypertension Surgical History History of colonoscopy (~10/25/19) History of left knee surgery Family History (Updated 03/02/25 @ 10:52 by Amy Stratton MA) Mother No problems noted. Father No problems noted. 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 Sumit Barrett, Denita Guerrero, Lester Alcantara and colleagues, with an educational leonidas from [employer]. Physical exam (Primary Care) Vital Signs: Last Vital Signs Temp 97.3 F 05/03/25 11:01 Pulse 73 05/03/25 11:01 BP 108/64 05/03/25 11:01 Pulse Ox 97 05/03/25 11:01 Oxygen Delivery Method Room Air 05/03/25 11:01 Tobacco/Smoking Status: Tobacco use Status Tobacco use date assessed 03/02/25 05/03/25 11:03 Patient Tobacco Use Status Never used Tobacco 05/03/25 11:03 e-Cigarette/Vaping Use Never Used 05/03/25 11:03 Thrive Assessment: Date of Thrive Assessment Date Thrive assessed 03/02/25 05/03/25 11:03 Coding Level of Care Code Est Pt Level 3 (69315) Diagnoses Dermatofibroma D23.9 Multiple skin tags of axilla L91.8 Assessment & Plan Assessment & Plan (1) Dermatofibroma: Code(s): D23.9 - Other benign neoplasm of skin, unspecified Category: Medical Plan: Likely benign. However referred to dermatology for further exavluation and possible biopsy to rule out malignancy or other etiology and possible excision given it is bothersome to patient. (2) Multiple skin tags of axilla: Code(s): L91.8 - Other hypertrophic disorders of the skin Category: Medical Plan: Referred to dermatology Orders: Referrals Dermatology Referral D23.9 - Other benign neoplasm of skin, unspecified, L91.8 - Other hypertrophic disorders of the skin
[2025-05-03 11:01] VITALS: BP 108/64; PULSE 73; TEMP 36.3; O2SAT 97
--- OUTSIDE RECORDS SUMMARY | 2025-05-03 12:06 | XMS_ITS | Patient Health Record ---
Author Organization [facility] Address [address] [place] [address] Care Team Providers Care Back Up Machine Operator Name Role Phone Jonathon Hammond MD Primary Care Provider Deboraha Sumit Zavala Unavailable [phone] Reason For Referral No Information Medications Medication SIG (Take, Route, Frequency, Duration) Notes Start Date End Date Status ALPRAZolam 0.25 MG 1 tablet Orally prn Active Fluticasone Propionate 50 MCG/ACT 1 spray in each nostril Nasally prn Active Turmeric 450 MG as directed Orally once a day Active Amoxicillin 875 MG 1 tablet Orally prn Active Levothyroxine Sodium 100 MCG 1 tablet in the morning on an empty stomach Orally Once a day for 30 day(s) Active Simvastatin 40 MG 1 tablet in the evening Orally Once a day for 30 day(s) Active Lisinopril 5 MG 1 tablet Orally Once a day for 30 day(s) Active hydroCHLOROthiazide 25 MG 1 tablet in th e morning Orally Once a day for 30 day(s) Active Potassium Gluconate 595 (99 K) MG 1 tablet Orally Once a day Active Immunizations Vaccine Route Administration Date Status Comme nts Influenza Unknown 07/21/2019 Administered Social History Tobacco Use: Social History Observation Description Date Details (start date - stop date) Never Smoker NA - NA Tobacco Use/Smoking Question Answer Notes Patient is a nonsmoker Alcohol Screen Question Answer Notes Did you have a drink contain ing alcohol in the past year? Yes How often did you have a dri nk containing alcohol in the past year? 2 to 4 times a month (2 points) How many drinks did you have on a typical day when you were drinking in the past year? 1 or 2 drinks (0 point) How often did you have 6 or more drinks on one occasion in the past year? Never (0 point) Points 2 Interpretation Negative Section Notes: Nonsmoker; no sig alcohol Problems Problem Type SNOMED Code ICD Code Onset Dates Problem Status W/U Status Risk Notes Problem 692908763 Encounter for screening for malignant neoplasm of colon (Z12.11) Active confirmed Problem 494179510 History of adenomatous polyp of colon (Z86.010) Active confirmed Problem 840964915039839 Preprocedural examination (Z01.818) Active confirmed Problem 979191000 Long-term use of high-risk medication (Z79.899) Active confirmed Plan Of Treatment Pending Test Test Name Order Date GI BIOPSY 10/25/2019 Future Test Test Name Order Date COLONOSCOPY 10/06/2019 Insurance Providers Payer Name Payer Address Payer Phone Subscriber Number Group Number Insured Name Patient Relationship to Insured Coverage Start Date Coverage End Date [facility] [address] [place], [place] [id number] CHAVEZ BARCENAS Self - patient is the insured Medical (General) History Medical History History ICD Code Denies OK,DM,CVA,Lung disease,renal dise ase Non-Hodgkin's lymphoma with chemo 11/2015 at [facility] with Dr. Kern Screening colonoscopy 04/2009 with one small tubular adenoma removed; neg. flex sig in 1997 Hyperlipidmia Hypothyroidism HTN Kidney stone Surgical History Surgery Date(Month/Year) Left knee Left ear and Mastoid as a teenager Left foot plantar tendon release for fas citis
== END 2025-05-03 11:55 | disposition home or self-care (01) ==
LOC: HO.HMCHD 10:53
PROVIDERS: PCP Internal Medicine; Visit Provider Physician Assistant
DX: D23.9 Other benign neoplasm of skin, unspecified (principal); L91.8 Other hypertrophic disorders of the skin

== ENCOUNTER → 2025-05-03 10:52 | Outpatient (BNVA) | payer MEDICARE, BC, SELFPAY | PROVIDERS: PCP Internal Medicine; Visit Provider Physician Assistant | DX: L91.8 Other hypertrophic disorders of the skin (principal); D23.5 Other benign neoplasm of skin of trunk; E11.9 Type 2 diabetes mellitus without complications; I10 Essential (primary) hypertension; E03.9 Hypothyroidism, unspecified; E78.5 Hyperlipidemia, unspecified | CPT/HCPCS: 99212 ==

== ENCOUNTER 2025-06-21 10:15 | Outpatient (AMB) | payer MEDICARE, BC, SELFPAY ==
--- OUTSIDE RECORDS SUMMARY | 2025-03-10 04:30 | XMS_ITS ---
Author Organization [facility] Geraldine meeks [place] Address [address] [place] [address] Care Team Providers Care Tub Operator Name Role Phone Bridgette, Kartik Primary Care Provider Jennifer Smallwood Unavailable [phone] Medications Medication SIG (Take, Route, Frequency, Duration) [...] Negative Encounters Encounter Location Date Provider Diagnosis [facility] [address] [place] [address] 03/10/2025 Jennifer Smallwood Plan Of Treatment No Information Progress Notes * Jose Carlos ALONZO ADOB: [birth year] (79 yo M)Acc No.[id number]:03/10/2025 Progress Notes Patient: Jose Carlos FAIRBANKS A Provider: Wendy Smallwood DPM :1945 A ge:79 Y S ex:Male Date:03/10/2025 Address:[address] [place], [place] [id number] Pcp:Ferny Angeles Subjective: * Chief Complaints: * [...] enies. C ardiovascular: Pacemaker d enies. M LAPIDARIST d enies. W PW d enies. C [...] Marital status: . 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 D rug/Alcohol: A SHERMAN-C (Standard) D [...] DPM Date: 0 03/10/2025 Generated for Yves Morejon/Slyitting on: 0 06/21/2025 11:32 AM EDT
--- NOTE | 2025-06-21 10:29 | A.OFFPC_ITS ---
Vital Signs 06/21/25 10:31 Height 5 ft 6 in Weight 74.843 kg BMI 26.6 BP 108/58 L Pulse 68 Pulse Source Pulse Oximeter Temp 97.4 F Temp Source Temporal Artery Scan Pulse Oximetry (%) 98 Oxygen Delivery Method Room Air Intake Visit Reasons: 4 Month F/U Medical Certification Specialist Required: No Accompanied by: Self / Same As Patient Allergies No Known Allergies Allergy (Verified 06/21/25 10:30) Tobacco use date assessed: 03/02/25 Dental Screening Dental Screen Date: 03/02/25 HPI HPI Comments History of Present Illness Details 79-year-old male with history of type 2 diabetes, hypertension, hypothyroidism, hyperlipidemia presents to the office today for evaluation. Recently seen by derm for lesion on scalp which was SCC and for skin tags. ([facility]) Continue with neck stiffness. Waxes and wanes in severity. Massage improves for about 1 week. Still goes to the gym twice weekly. Just machines no bar. New pillow has helped. Ongoing x3 months, no injury. using tumeric and multivitamin as well as aleve, and topicals Received flu shot last week ROS: General: No fevers, malaise, unintentional weight loss Skin: see hpi EXAM: Constitutional - Awake and Alert, No apparent distress Eyes - PERRL Cardiovascular - S1S2, RRR, No edema Respiratory - Normal lung expansion, Normal respiratory effort, No respiratory distress, CTA bilaterally Extremities - no calf tenderness bilaterally, no swelling Skin - Warm/Dry. Neurological - Alert & oriented x3 Psychological - Appropriate affect [facility] Medical History (Updated 06/21/25 @ 11:01 by ELIU Galicia) Squamous cell carcinoma, scalp/neck Cataract Hypothyroidism Type 2 diabetes mellitus Hypercholesteremia Hypertension Surgical History History of colonoscopy (~10/25/19) History of left knee surgery Family History (Updated 03/02/25 @ 10:52 by Amy Stratton MA) Mother No problems noted. Father No problems noted. 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 Sumit Barrett, Denita Guerrero, Lester Alcantara and colleagues, with an educational leonidas from [employer]. Physical exam (Primary Care) Vital Signs: Last Vital Signs Temp 97.4 F 06/21/25 10:31 Pulse 68 06/21/25 10:31 BP 108/58 L 06/21/25 10:31 Pulse Ox 98 06/21/25 10:31 Oxygen Delivery Method Room Air 06/21/25 10:31 BMI result Body Mass Index 26.6 Tobacco/Smoking Status: Tobacco use Status Tobacco use date assessed 03/02/25 06/21/25 10:35 Patient Tobacco Use Status Never used Tobacco 06/21/25 10:35 e-Cigarette/Vaping Use Never Used 06/21/25 10:35 Thrive Assessment: Date of Thrive Assessment Date Thrive assessed 03/02/25 06/21/25 10:35 Coding Level of Care Code Est Pt Level 4 (72609) Complex EM visit Add On G2211 Diagnoses Hypertension I10 Hypercholesteremia E78.00 Type 2 diabetes mellitus E11.9 Hypothyroidism E03.9 Squamous cell carcinoma, scalp/neck C44.42 Cervical paraspinal muscle spasm M62.838 Assessment & Plan Assessment & Plan (1) Hypertension: Code(s): I10 - Essential (primary) hypertension Category: Medical Plan: Low normal. Stop lisinopril, continue hctz (2) Hypercholesteremia: Code(s): E78.00 - Pure hypercholesterolemia, unspecified Category: Medical Plan: Lower simvastatin to 20mg daily (3) Type 2 diabetes mellitus: Code(s): E11.9 - Type 2 diabetes mellitus without complications Category: Medical Plan: Continue current thearpies (4) Hypothyroidism: Code(s): E03.9 - Hypothyroidism, unspecified Category: Medical Plan: Continue levothyroxine (5) Squamous cell carcinoma, scalp/neck: Code(s): C44.42 - Squamous cell carcinoma of skin of scalp and neck Category: Medical Plan: Continue following with derm, will request notes (6) Cervical paraspinal muscle spasm: Code(s): M62.838 - Other muscle spasm Category: Medical Plan: Referred for PT. Continue aleve prn and topicals. Orders: Orders Basic Metabolic Panel 3 Months C44.42 - Squamous cell carcinoma of skin of scalp and neck, E03.9 - Hypothyroidism, unspecified, E11.9 - Type 2 diabetes mellitus without complications, E78.00 - Pure hypercholesterolemia, unspecified, I10 - Essential (primary) hypertension Liver Panel 3 Months C44.42 - Squamous cell carcinoma of skin of scalp and neck, E03.9 - Hypothyroidism, unspecified, E11.9 - Type 2 diabetes mellitus without complications, E78.00 - Pure hypercholesterolemia, unspecified, I10 - Essential (primary) hypertension TSH reflex Free T4 3 Months C44.42 - Squamous cell carcinoma of skin of scalp and neck, E03.9 - Hypothyroidism, unspecified, E11.9 - Type 2 diabetes mellitus without complications, E78.00 - Pure hypercholesterolemia, unspecified, I10 - Essential (primary) hypertension PT Evaluation and Treatment 06/21/25 M62.838 - Other muscle spasm Hemoglobin A1c 3 Months C44.42 - Squamous cell carcinoma of skin of scalp and neck, E03.9 - Hypothyroidism, unspecified, E11.9 - Type 2 diabetes mellitus without complications, E78.00 - Pure hypercholesterolemia, unspecified, I10 - Essential (primary) hypertension Lipid Panel 3 Months C44.42 - Squamous cell carcinoma of skin of scalp and neck, E03.9 - Hypothyroidism, unspecified, E11.9 - Type 2 diabetes mellitus without complications, E78.00 - Pure hypercholesterolemia, unspecified, I10 - Essential (primary) hypertension Medications: New levothyroxine (Levoxyl) 100 mcg PO DAILY 90 tabs 1RF simvastatin 20 mg PO BEDTIME 90 tabs 1RF Discontinued levothyroxine Discontinued Reason: Doctor's Order 100 mcg PO DAILY 90 caps 1RF simvastatin Discontinued Reason: Doctor's Order 40 mg PO DAILY 90 tabs 1RF lisinopril Discontinued Reason: Doctor's Order 5 mg PO DAILY 90 tabs 1RF
[2025-06-21 10:31] VITALS: BP 108/58; PULSE 68; TEMP 36.3; O2SAT 98; BMI 26.6
--- OUTSIDE RECORDS SUMMARY | 2025-06-21 11:32 | XMS_ITS | Clinical Summary ---
Author Organization [facility] Address [address] [place] [address] Phone Care Team Providers Care Sponge Press Operator Name Role Phone Jonathon Hammond MD Primary Care Provider Yong Alonzo MD Unavailable [phone] Social History Tobacco Use Types Packs/Day Years Used Date Smoking Tobacco: Never Sex and Gender Information Value Date Recorded Sex Assigned at Not on file Legal Sex Male 1:44 PM EST Gender Identity Not on file Sexual Orientation Not on file Last Filed Vital Signs Vital Sign Reading Time Taken Comments Blood Pressure 123/81 10/06/2015 12:58 PM EST Pulse 80 10/06/2015 12:58 PM EST Temperature 36.7 C (98 F) 10/06/2015 12:58 PM EST Respiratory Rate 18 10/06/2015 12:58 PM EST Oxygen Saturation - - Inhaled Oxygen Concentration - - Weight 82.3 kg (181 lb 6.4 oz) 10/06/2015 12:58 PM EST Height 167.6 cm (5' 6 ) 10/06/2015 12:58 PM EST Body Mass Index 29.28 10/06/2015 12:58 PM EST Plan of Treatment Not on file Medical Devices Not on file Insurance [facility] [employer] [facility] [employer] [facility] [employer] [facility] [employer] [facility] [employer] [facility] [employer] Care Teams Sponge Press Operator Relationship Specialty Start Date End Date Jonathon Hammond MD [address] [place] [address] [place] [address] PCP - General Internal Medicine 09/05/15 Yong Alonzo MD [address] [place] [id number] [email or web address] Medical Oncology 01/27/16 Additional Source Comments The information contained in this document represents components of the legal health record. It is not the complete legal health record.[facility]
--- OUTSIDE RECORDS SUMMARY | 2025-06-21 11:32 | XMS_ITS | Clinical Summary ---
Author Organization [address] [place] [address] [place] [phone] Phone Care Team Providers Care Compensator Worker Name Role Phone Physician, Pcp Unknown Primary Care Provider Augusta vailable Allergies No known active allergies Medications simvastatin (ZOCOR) 40 mg tablet Take 1 tablet (40 mg total) by mouth 1 (one) time each day. 5 Active levothyroxine (SYNTHROID, LEVOTHROID) 100 mcg tablet Take 1 tablet (100 mcg total) by mouth 1 (one) time each day. 5 Active hydroCHLOROthia zide 12.5 mg tablet Take 1 tablet (12.5 mg total) by mouth 1 (one) time each day. 5 Active lisinopriL (PRINIVIL,ZESTR IL) 5 mg tablet Take 1 tablet (5 mg total) by mouth 1 (one) time each day. 5 Active metFORMIN (GLUCOPHAGE) 500 mg tablet TAKE 1/2 TABLET (250MG) BY MOUTH ORALLY DAILY 5 Active amoxicillin (AMOXIL) 500 mg capsule Take 1 capsule (500 mg total) by mouth. 5 Active fluticasone propionate (FLONASE) 50 mcg/actuation nasal spray Administer 1 spray into each nostril 1 (one) time each day. Shake gently. Before first use, prime pump. After use, clean tip and replace cap. Active multivitamin tablet Take 1 tablet by mouth 1 (one) time each day. Active Encounters Date Type Department Care Team Description 06/09/2025 Telephone General Surgery [address] [place] [address] Reymundo Rico DO Auth (06/09/2025 BCBS ) 06/08/2025 11:30 AM EDT Consult Plastic [facility] [place] [address] [place] [address] Jae Oneill PA Squamous cell carcinoma of back (Primary Dx) from Last 3 Months Social History Tobacco Use Types Packs/Day Years Used Date Smoking Tobacco: Never Smokeless Tobacco: Never Tobacco Cessation:Counseling Given: Not Answered Alcohol Use Standard Drinks/Week Comments Yes 1 (1 standard drink = 0.6 oz pur e alcohol) Sex and Gender Information Value Date Recorded Sex Assigned at Male 06/03/2025 6:53 PM EDT Legal Sex Male 9:39 AM EDT Gender Identity Male 06/03/2025 6:53 PM EDT Sexual Orientation Straight 06/03/2025 6: 53 PM EDT Obstetrics History Last Filed Vital Signs Vital Sign Reading Time Taken Comments Blood Pressure 118/75 06/08/2025 11:05 AM EDT Pulse 72 06/08/2025 11:05 AM EDT Temperature - - Respiratory Rate - - Oxygen Saturation - - Inhaled Oxygen Concentration - - Weight 74.6 kg (164 lb 6.4 oz) 06/08/2025 11:05 AM EDT Height 167.6 cm (5' 6 ) 06/08/2025 11:05 AM EDT Body Mass Index 26.53 06/08/2025 11:05 AM EDT Plan of Treatment Health Maintenance Due Date Last Done Comments Diabetes: Annual GFR (Glomerular Filtration Rate) 1947 Diabetes: Annual Foot Exam 1957 Diabetes: Annual Retina Eye Exam 1957 RSV Immunization Adult Patients (1 - 1-dose 75+ series) 2022 Depression Screening 11/03/2024 COVID-19 Vaccine (8 - Moderna risk season) 2025 08/09/2024, 08/04/2023, 08/30/2022, Additional history exists Cholesterol Screening (Lipid Panel) 06/01/2025 Falls Risk Assessment 06/01/2025 Hepatitis C Screening 06/01/2025 Medicare Annual Wellness Visit 06/01/2025 Social Influencers of Health Screening 06/01/2025 Diabetes: Annual Urine Albumin-Creatinine Ratio (uACR) 06/08/2025 Diabetes: Blood Sugar Control Test (HGBA1C) 06/08/2025 Hypertension/CHF/CAD Annual BMP Blood Test 06/08/2025 Influenza Vaccine (#1) 2025 , 10/02/2023, 07/06/2023, Additional history exists DTaP,Tdap,and Td Vaccines (3 - Td or Tdap) 06/26/2033 06/26/2023, 10/21/2011 Pneumococcal Vaccine: 50+ Years Completed 10/07/2017, 06/27/2015, 02/01/2011, Additional history exists Zoster Vaccines Completed 02/17/2021, 11/05, 11/03/2012 HIB Vaccines Aged Out No longer eligi ble based on patient's age to complete this topic HPV Vaccines Aged Out No longer eligi ble based on patient's age to complete this topic Hepatitis A Vaccines Aged Out No long er eligible based on patient's age to complete this topic Hepatitis B Vaccines Aged Out No long er eligible based on patient's age to complete this topic IPV Vaccines Aged Out No longer eligi ble based on patient's age to complete this topic MMR Vaccines Aged Out No longer eligi ble based on patient's age to complete this topic Meningococcal ACWY Vaccine Aged Out N o longer eligible based on patient's age to complete this topic Meningococcal B Vaccine Aged Out No l onger eligible based on patient's age to complete this topic RSV Immunization Patients Under 20 months Aged Out No longer eligible based on patient's age to complete this topic Varicella Vaccines Aged Out No longer eligible based on patient's age to complete this topic Insurance MEDICARE [facility] Care Teams Compensator Worker Relationship Specialty Start Date End Date Physician, Pcp Unknown PCP - General 06/01/25
--- OUTSIDE RECORDS SUMMARY | 2025-06-21 11:32 | XMS_ITS | Patient Health Record ---
Author Organization [facility] Address [address] [place] [address] Care Team Providers Care Header Set Up Operator Name Role Phone Manish (RETIRED) Jonathon ARTHUR Primary Care Provide r Sumit Stewart Unavailable [phone] Reason For Referral No Information Medications Medication [...] Problem Status W/U Status Risk Notes Problem [id number] Encounter for screening for malignant neoplasm of colon (Z12.11) Active confirmed Problem 137049905 History of adenomatous polyp of colon (Z86.010) Active confirmed Problem [id number] Preprocedural examination (Z01.818) Active confirmed Problem 503480879 Long-term use of high-risk medication (Z79.899) Active confirmed Plan Of Treatment Pending Test Test Name Order Date GI BIOPSY 10/25/2019 Future Test Test Name Order Date COLONOSCOPY 10/06/2019 Insurance Providers Payer Name Payer Address Payer Phone Subscriber Number Group Number Insured Name Patient Relationship to Insured Coverage Start Date Coverage End Date [facility] [address] [place], [place] [id number] [phone] [id number] CHAVEZ BARCENAS Self - patient is the insured Medical (General) History Medical History History ICD Code Denies MD,DM,CVA,Lung disease,renal dise ase Non-Hodgkin's lymphoma with chemo 11/2015 at [facility] with Dr. Kern Screening colonoscopy 04/2009 with one small tubular adenoma removed; neg. flex sig in 1997 Hyperlipidmia Hypothyroidism HTN Kidney stone Surgical History Surgery Date(Month/Year) Left knee Left ear and Mastoid as a teenager Left foot plantar tendon release for fas citis
== END 2025-06-21 11:14 | disposition home or self-care (01) ==
LOC: HO.HMCHD 10:16
PROVIDERS: PCP Physician Assistant; Visit Provider Physician Assistant
DX: I10 Essential (primary) hypertension (principal); E78.00 Pure hypercholesterolemia, unspecified; E11.9 Type 2 diabetes mellitus without complications; E03.9 Hypothyroidism, unspecified; C44.42 Squamous cell carcinoma of skin of scalp and neck; M62.838 Other muscle spasm

== ENCOUNTER → 2025-06-21 10:15 | Outpatient (BNVA) | payer MEDICARE, BC, SELFPAY | PROVIDERS: PCP Physician Assistant; Visit Provider Physician Assistant | DX: I10 Essential (primary) hypertension (principal); E78.00 Pure hypercholesterolemia, unspecified; E11.9 Type 2 diabetes mellitus without complications; E03.9 Hypothyroidism, unspecified; C44.42 Squamous cell carcinoma of skin of scalp and neck; M62.838 Other muscle spasm; Z79.899 Other long term (current) drug therapy | CPT/HCPCS: 99212 ==

== ENCOUNTER 2025-08-08 08:17 | Outpatient (REF) | payer MEDICARE, BC, SELFPAY ==
--- NOTE | ~2025-08-08 | XR_ITS ---
EXAMINATION: XR KNEE, LEFT CLINICAL INFORMATION: M25.562 - Pain in left knee COMPARISON: None available. TECHNIQUE: AP standing, sunrise, and lateral views of the left knee. FINDINGS: Linear chondrocalcinosis is present in the lateral compartment. There is no joint effusion. There is mild narrowing of the lateral greater than medial joint spaces. There are tricompartmental marginal osteophytes. Image of the right knee demonstrates chondrocalcinosis in the medial and lateral compartments involving articular cartilage and meniscus. 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 Electronically signed by: Jeremy White MD 08/08/2025 11:32 AM EDT
--- OUTSIDE RECORDS SUMMARY | 2025-08-09 08:35 | XMS_ITS | Clinical Summary ---
Author Organization [facility] Address [address] [place] [address] Phone Care Team Providers Care Hospice Clinical Supervisor Name Role Phone Jonathon Hammond MD Primary Care Provider Yong Alonzo MD Unavailable [phone] Social History Tobacco Use Types Packs/Day Years [...] file Medical Devices Not on file Insurance [facility] FEDERAL [employer] [facility] [employer] [facility] [employer] [facility] [employer] [facility] [employer] [facility] [employer] FEDERAL [employer] FEDERAL Care Teams Hospice Clinical Supervisor Relationship Specialty Start Date End Date Jonathon Hammond MD [address] [place] [address] [place] [address] PCP - General Internal Medicine 09/05/15 Yong Alonzo MD [address] [place] [phone] [email or web address] Medical Oncology 01/27/16 Additional Source Comments The information contained in this document represents components of the legal health record. It is not the complete legal health record.[facility]
--- OUTSIDE RECORDS SUMMARY | 2025-08-09 08:35 | XMS_ITS | Clinical Summary ---
Author Organization [address] [place] [address] [place] [phone] Phone Care Team Providers Care Commercial Banker Name Role Phone Physician, Pcp Unknown Primary [...] EDT Office Visit Plastic & Reconstructive Surgery [facility] [address] [phone] Key Murrieta PA Squamous cell carcinoma of back (Primary Dx); Skin tags, multiple acquired 07/20/2025 9:00 AM EDT Procedure visit Plastic & Reconstructive Surgery [facility] [address] [address] Reymundo Rico, Squamous cell carcinoma of back (Primary Dx) 06/28/2025 Telephone General Surgery [facility] [address] [address] Reymundo Rico DO 06/09/2025 Telephone [facility] Surgery [facility] [address] [address] Reymundo Rico DO 06/08/2025 11:30 AM EDT Consult Plastic & Reconstructive Surgery [facility] [address] [address] Jae Oneill PA Squamous cell carcinoma of [...] No neoplasm identified 07/21/2025 12:42 PM EDT [facility] Clinical Information Squamous cell carcinoma of back (C44.529) 07/21/2025 12:42 PM T [facility] Gross Description A. Back, Upper, excision [...] serially sectioned sequentially from 3-9 o'clock and small business sales representative sections are submitted in four cassettes. 1-3 and 9 o'clock tips, with green ink at 3 o'clock, two pieces 2-4 center of specimen, blocked out, sequentially submitted from 3-9 (2-3: two pieces each, 4-one piece) TS 07/21/2025 12:42 PM [facility] Disclaimer Unless otherwise specified, all tissue is 10% NB formalin fixed and paraffin embedded. 07/21/2025 12:42 PM [facility] Tissue Structure of upper back / Unknown Non-blood Collection / Unknown 07/20/2025 9:11 AM EDT 07/20/2025 9:12 AM EDT us Reymundo Rico DO LAB PATHOLOGY ORDERABLES Fin al Result [facility] [address] [place] [address], [place] [phone] from Last 3 Months Insurance [facility] Care Teams Commercial Banker Relationship Specialty Start Date End Date Physician, Pcp Unknown PCP - General 06/01/25
== END 2025-08-08 08:18 | disposition home or self-care (01) ==
LOC: HO.HOSX 08:17
PROVIDERS: Visit Provider Physician Assistant
DX: M17.12 Unilateral primary osteoarthritis, left knee (principal); M62.838 Other muscle spasm; M25.562 Pain in left knee
CPT/HCPCS: 20610; 73562; 99212; J0665; J1100; J2003

== ENCOUNTER 2025-08-08 11:20 | Outpatient (AMB) | payer MEDICARE, BC, SELFPAY ==
--- OUTSIDE RECORDS SUMMARY | 2025-03-10 04:30 | XMS_ITS ---
Author Organization [facility] Geraldine meeks [place] Address [address] [place] [address] Care Team Providers Care Naphthol Soaping Machine Operator Name Role Phone Bridgette, Kartik Primary Care Provider Jennifer Smallwood Unavailable [phone] Medications Medication SIG (Take, Route, Frequency, Duration) Notes Start Date End Date Status Levothyroxine Sodium 100 MCG 1 tablet in the morning on an empty stomach Orally Once a day Active Lisinopril 5 MG 2 tablets Orally Onc e a day Active hydroCHLOROthiazide 12.5 MG 1 tablet in the morning Orally Once a day Active Suplena Active metFORMIN HCl Active Magnesium Oxide 250 MG 1 tablet with alfonso d Orally Once a day Active Simvastatin 40 MG 1 tablet in the even ing Orally Once a day Active Social History Tobacco Use: Social History Observation [...] Negative Encounters Encounter Location Date Provider [facility] [address] [place] [address] 03/10/2025 Jennifer Smallwood Plan Of Treatment No Information Progress Notes * Jose Carlos ALONZO ADOB: [birth year] (80 yo M)Acc No.[id number]:03/10/2025 Progress Notes Patient: Jose Carlos FAIRBANKS A Provider: Wendy Smallwood DPM :1945 A ge:79 Y S ex:Male Date:03/10/2025 Address:[address] [place], [place] [id number] Pcp:Ferny Angeles Subjective: * Chief Complaints: * * ROS: G eneral/Constitutional: Nausea d enies. V omiting d enies. H tad Thirst d enies. L oss appetite d enies. C hills d enies. F atigue d enies.?Fever d enies. N ight Sweats d enies. U nexplained weight loss d enies. U nexplained weight gain d enies. H EENTM: Dentures d enies. D izziness d enies. G lasses/contacts a dmits. R etinopathy d enies. B lurred/double vision d enies. T MJ?denies. D ischarge/drainage d enies. I mplants d enies. S ore throat d enies. D ental implants d enies. H malia of hearing d enies. D ifficulty chewing/swallowing/speaking d enies. N ose bleeds d enies. S ore mouth d enies. ? R espiratory: On Oxygen d enies. P neumonia/pleurisy d enies.?Bronchitis d enies. E mphysema d enies. C oughing d enies. C ough blood?denies. S hortness of breath d enies. W heezing d enies. C ardiovascular: Pacemaker d enies. M FIRE INSPECTOR d enies. W PW d enies. C HF d enies. H eart attack d enies. S eptal defect d enies. R apid beat d enies. C hest pain d enies. A trial Fib. d enies. M urmur/Palpitations d enies. G astrointestinal: Hemorrhoids d enies. S tomach/Abdominal pain d enies. D ark blood stool d enies. I rritable bowel d enies. C onstipation d enies. D iarrhea d enies. H ematology: Swelling d enies. C lots d enies. V aricose Veins d enies. B ruising d enies. B leeding problem d enies. G enitourinary: Blood urine d enies. F requent/Painfu/urination/bladder control d enies. K idney stones d enies. I nfection (UTI) d enies. N ephropathy d enies. s ex trans dis (STD) d enies. P rostate d enies. M usculoskeletal: Hammertoes d enies. B unions d enies. B ack Pain d enies. M uscle Cramps/ Resting d enies. M uscle cramps / walking d enies.?Generalized aches and pains d enies. W eakness d enies. I nteg.: Villagran d enies. S cars a dmits. C orns/calluses?admits. I ngrown nails d enies. P ainful nails d enies. O pen Sores d enies. R ashes d enies. N eurologic: Difficulty sleeping d enies. B rain disorder d enies. N umbness d enies. B alance trouble d enies. C onfusion d enies. F ainting/blackouts d enies. T ingling d enies. T remors d enies. * Medical History: A nxiety, Arthritis, Cancer, Covid-19, type II diabetes, Diverticulosis, High Blood Pressure, Sinusitis, Thyroid, Measles. * Family History: M other: , diagnosed with Unspecified essential hypertension, Unspecified heart disease. F ather: , diagnosed with Unspecified heart disease. * Social History: T obacco Use: T obacco use other than smoking A re you an other tobacco user? N o Tobacco Control (Standard) T obacco use: N onsmoker A dditional Findings: Tobacco non-user C urrent nonsmoker D rugs/Alcohol: D rugs H ave you used drugs other than those for medical reasons in the past 12 months? N o M iscellaneous: C affeine: yes, frequency:. Marital status: . 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 D rug/Alcohol: A SHERMAN-C (Standard) D id you have a drink containing alcohol in the past year? Y es H ow often did you have a drink containing alcohol in the past year? D eclined to specify (0 point) H ow many drinks did you have on a typical day when you were drinking in the past year? D eclined to specify (0 point) H ow often did you have six or more drinks on one occasion in the past year? D eclined to specify (0 point) P oints 0 I nterpretation N egative * Medications: T aking Magnesium Oxide 250 MG Tablet 1 tablet with food Orally Once a day , Taking Suplena , Taking metFORMIN HCl , Taking Lisinopril 5 MG Tablet 2 tablets Orally Once a day , Taking hydroCHLOROthiazide 12.5 MG Tablet 1 tablet in the morning Orally Once a day , Taking Levothyroxine Sodium 100 MCG Tablet 1 tablet in the morning on an empty stomach Orally Once a day , Taking Simvastatin 40 MG Tablet 1 tablet in the evening Orally Once a day Objective: * Vitals: Assessment: Plan: * Treatment: * Images: * The named appointment provid er may or may not be the originator of this progress note, and it is not deemed complete until electronically signed by the appointment provider. Sign off status: Pending * Provider: Wendy Smallwood DPM Date: 0 03/10/2025 Generated for Yves Morejon/Sabi on: 01:55 PM EDT
--- NOTE | 2025-08-08 11:39 | MHC.OFFVIS ---
Vital Signs 08/08/25 11:57 Height 5 ft 6 in Weight 165 lb BMI 26.6 Intake Visit Reasons: OV LT knee injury 08/02/25 Intake Note: Jose Carlos is a 80 year old male who presents today as an established patient, new problem visit to evaluate his left knee injury, DOI 08/02/35. Patient reports that he was bowling when he felt a pulling at the medial aspect of knee. States he had to use crutches for a few days after and he also is using knee bracing. His discomfort increases with going up stairs. Allergies No Known Allergies Allergy (Verified 08/08/25 11:57) Medication List - Last Reconciled 08/08/25 by Krysten Davis PA-C alprazolam 0.25 mg PO BEDTIME PRN levothyroxine (Levoxyl) 100 mcg PO DAILY lisinopril 5 mg PO DAILY magnesium 250 mg PO DAILY metformin 250 mg (1/2 x 500 mg) PO DAILY simvastatin 20 mg PO BEDTIME HPI HPI OV LT knee injury 08/02/25: Details: 80-year-old gentleman presents to the office today for left knee pain. He states on 08/02 he was bowling when he felt an unusual discomfort in the left knee. He does have a history of ACL tear in 2011. He has been working with physical therapy in the past with good results and did not have any issues until recently. He states he has a sensation in his knee where it wants to buckle when he is going downstairs or putting any type of weight or added pressure to the left knee. [facility] Medical History (Updated 06/21/25 @ 11:01 by ELIU Galicia) Squamous cell carcinoma, scalp/neck Cataract Hypothyroidism Type 2 diabetes mellitus Hypercholesteremia Hypertension Surgical History History of colonoscopy (~10/25/19) History of left knee surgery Family History (Updated 03/02/25 @ 10:52 by Amy Stratton MA) Mother No problems noted. Father No problems noted. 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 Full range of motion. He has mild tenderness over the medial joint line. Calf supple and nontender neurovascularly intact. Office Procedures AMB Joint Injection/Aspiration Joint Injection/Aspiration Primary Site: left knee Prep: site was prepped using aseptic technique, ethochloride spray was applied and injection warnings given Injected: 40 mg of, with 3 mL of, 1% plain lidocaine, 0.25% bupivacaine, in the joint and decadron Approach Used: anterolateral Coding 98154 - Glenohumeral/Tronchanteric Bursa/Intraarticular Procedure code (CPT) selection complete Results Reviewed Results Reviewed: Xrays were obtained in the office today and personally reviewed by me of the left knee negative for acute fracture or dislocations . Mild to moderate degenerative oa Assessment & Plan Assessment & Plan (1) Osteoarthritis of left knee: Code(s): M17.12 - Unilateral primary osteoarthritis, left knee Category: Medical Plan We discussed options today, which include steroid injection. The patient did consent to move forward with the injection, which was tolerated well.? I recommended rest, ice and elevation and OTC antiinflammatories prn for discomfort. He was also fit for a genumed knee brace. If symptoms persist over the next 6-8 weeks, they will contact our office, otherwise, prn Orders: Orders XR knee LT 3V Today M25.562 - Pain in left knee PT Evaluation and Treatment 06/21/25 M62.838 - Other muscle spasm Coding Level of Care Code Est Pt Level 3 (52905) Complex EM visit Add On G2211 Diagnoses Osteoarthritis of left knee M17.12 CPT Codes Coding - Joint 7: 99370 - Glenohumeral/Tronchanteric Bursa/Intraarticular ([id number])
[2025-08-08 11:57] VITALS: BMI 26.6
--- OUTSIDE RECORDS SUMMARY | 2025-08-08 13:55 | XMS_ITS | Patient Health Record ---
Author Organization [facility] Address [address] [place] [address] Care Team Providers Care Change Agent Name Role Phone Ferny Angeles Primary Care Provider Jennifer Smallwood Unavailable [phone] Reason For Referral No Information Medications Medication [...] Negative Encounters Encounter Location Date Provider Diagnosis [facility] [address] [place] [address] 02/15/2025 Jennifer Smallwood Plan Of Treatment No Information Insurance Providers Payer Name Payer Address Payer Phone Subscriber Number Group Number Insured Name Patient Relationship to Insured Coverage Start Date Coverage End Date Medicare [employer] [address] [place] [address] [id number] Jose Carlos Alonzo Self - patient is the insured [facility] [address] [place] [address] [id number] Jose Carlos Alonzo Self - patient is the insured Medical (General) History Medical History History ICD Code Anxiety Arthritis Cancer covid-19 type II diabetes Diverticulosis High Blood Pressure sinusitis thyroid Measles
--- OUTSIDE RECORDS SUMMARY | 2025-08-08 13:55 | XMS_ITS | Patient Health Record ---
Author Organization [facility] Address [address] [place] [address] Care Team Providers Care Leak Detection Engineer Name Role Phone Manish (RETIRED) Jonathon ARTHUR Primary Care Provide r Sumit Stewart Unavailable [phone] Reason For Referral No Information Medications Medication [...] Problem Status W/U Status Risk Notes Problem 159761018 Encounter for screening for malignant neoplasm of colon (Z12.11) Active confirmed Problem 093501061 History of adenomatous polyp of colon (Z86.010) Active confirmed Problem 148323837089917 Preprocedural examination (Z01.818) Active confirmed Problem 245836862 Long-term use of high-risk medication (Z79.899) Active confirmed Plan Of Treatment Pending Test Test Name Order Date GI BIOPSY 10/25/2019 Future Test Test Name Order Date COLONOSCOPY 10/06/2019 Insurance Providers Payer Name Payer Address Payer Phone Subscriber Number Group Number Insured Name Patient Relationship to Insured Coverage Start Date Coverage End Date [facility] [address] [place], [place] [id number] [phone] [id number] CHAVEZ BARCENAS Self - patient is the insured Medical (General) History Medical History History ICD Code Denies SD,DM,CVA,Lung disease,renal dise ase Non-Hodgkin's lymphoma with chemo 11/[address] [facility] [address] Kern Screening colonoscopy 04/2009 with one small tubular adenoma removed; neg. flex sig in 1997 Hyperlipidmia Hypothyroidism HTN Kidney stone Surgical History Surgery Date(Month/Year) Left knee Left ear and Mastoid as a teenager Left foot plantar tendon release for fas citis
--- OUTSIDE RECORDS SUMMARY | 2025-08-08 13:55 | XMS_ITS | Clinical Summary ---
Author Organization [address] [place] [address] [place] [phone] Phone Care Team Providers Care Client Executive Name Role Phone Physician, Pcp Unknown Primary Care Provider Augusta vailable Allergies No known active allergies Medications simvastatin (ZOCOR) 40 mg tablet Take 0.5 tablets (20 mg total) by mouth 1 (one) time [...] Encounters Date Type Department Care Team Description 08/01/2025 10:30 AM EDT Office Visit Plastic & Reconstructive Surgery [facility] [address] [phone] Key Murrieta PA Squamous cell carcinoma of back (Primary Dx); Skin tags, multiple acquired 07/20/2025 9:00 AM EDT Procedure visit Plastic & Reconstructive Surgery [facility] [address] [address] Reymundo Rico, Squamous cell carcinoma of back (Primary Dx) 06/28/2025 Telephone General Surgery [facility] [address] [address] Reymundo Rico DO 06/09/2025 Telephone [facility] Surgery [facility] [address] [address] Reymundo Rico DO 06/08/2025 11:30 AM EDT Consult Plastic & Reconstructive Surgery [facility] [address] [address] Jae Oneill PA Squamous cell carcinoma of [...] Sign Reading Time Taken Comments Blood Pressure 143/90 07/20/2025 8:47 AM EDT Pulse 69 07/20/2025 8:47 AM EDT Temperature - - Respiratory Rate [...] 1-dose 75+ series) 2022 Depression Screening 11/03/2024 Cholesterol Screening (Lipid Panel) 06/01/2025 Falls Risk Assessment 06/01/2025 Hepatitis C Screening 06/01/2025 Medicare Annual Wellness Visit 06/01/2025 Social Influencers of Health Screening 06/01/2025 Diabetes: Annual Urine Albumin-Creatinine Ratio (uACR) 06/08/2025 Diabetes: Blood Sugar Control Test (HGBA1C) 06/08/2025 Hypertension/CHF/CAD Annual BMP Blood Test 06/08/2025 COVID-19 Vaccine (8 - Moderna risk ) 07/04/2025 08/09/2024, 08/04/2023, 08/30/2022, Additional history exists DTaP,Tdap,and Td Vaccines (3 - Td or Tdap) 06/26/2033 06/26/2023, 10/21/2011 Pneumococcal Vaccine: 50+ Years Completed 10/07/2017, 06/27/2015, 02/01/2011, Additional history exists Zoster Vaccines Completed 02/17/2021, 11/05, 11/03/2012 Influenza Vaccine Completed 06/16/2025, , 10/02/2023, Additional history exists HIB Vaccines Aged Out No longer eligi [...] on patient's age to complete this topic Procedures Procedure Name Priority Date/Time Associated Diagnosis Comments TISSUE EXAM Routine 07/20/2025 9:11 AM EDT Squamous cell carcinoma of back from Last 3 Months Results * Tissue Exam (07/20/2025 9:11 AM EDT) Final Diagnosis Skin, central upper back, excision: Dermal scar with infundibular cyst containing fungal yeast suggestive of Malassezia No neoplasm identified 07/21/2025 12:42 PM EDT [facility] Clinical Information Squamous cell carcinoma of back (C44.529) 07/21/2025 12:42 PM T [facility] Gross Description A. Back, Upper, excision lesion superior midback ink at 12: Labeled back U . Received in formalin is a 2.4 x 1.3 x 0.3 cm crane-white, centrally mottled fibrotic skin ellipse and subcutis with ink present at one peripheral edge per the requisition 12 o'clock . The 9-12-3 o'clock aspect is inked blue, the 3-6-9 o'clock aspect is inked black and the epidermis at 3 o'clock is inked green. The specimen is serially sectioned sequentially from 3-9 o'clock and field representative sections are submitted in four cassettes. 1-3 and 9 o'clock tips, with green ink at 3 o'clock, two pieces 2-4 center of specimen, blocked out, sequentially submitted from 3-9 (2-3: two pieces each, 4-one piece) TS 07/21/2025 12:42 PM [facility] Disclaimer Unless otherwise specified, all tissue is 10% NB formalin fixed and paraffin embedded. 07/21/2025 12:42 PM [facility] Tissue Structure of upper back / Unknown Non-blood Collection / Unknown 07/20/2025 9:11 AM EDT 07/20/2025 9:12 AM EDT us Reymundo Rico DO LAB PATHOLOGY ORDERABLES Fin al Result [facility] [address] [place] [address], [place] [phone] from Last 3 Months Insurance MEDICARE [facility] Care Teams Client Executive Relationship Specialty Start Date End Date Physician, Pcp Unknown PCP - General 06/01/25
--- OUTSIDE RECORDS SUMMARY | 2025-08-08 13:55 | XMS_ITS | Clinical Summary ---
Author Organization [facility] Address [address] [place] [address] Phone Care Team Providers Care Engine Wiper Name Role Phone Jonathon Hammond MD Primary [...] file Medical Devices Not on file Insurance [facility] FEDERAL [employer] [facility] [employer] [facility] [employer] [facility] [employer] [facility] [employer] [facility] [employer] FED[employer]AL [employer] FEDERAL Care Teams Engine Wiper Relationship Specialty Start Date End Date Jonathon Hammond MD [address] [place] [address] [place] [address] PCP - General Internal Medicine 09/05/15 Yong Alonzo MD [address] [place] [phone] [email or web address] Medical Oncology 01/27/16 Additional Source Comments The information contained in this document represents components of the legal health record. It is not the complete legal health record.[facility]
== END 2025-08-08 13:23 | disposition home or self-care (01) ==
LOC: HO.HOS 11:21
PROVIDERS: PCP Physician Assistant; Visit Provider Physician Assistant
DX: M17.12 Unilateral primary osteoarthritis, left knee (principal)
CPT/HCPCS: 20610; 99213

== ENCOUNTER → 2025-08-08 11:23 | Outpatient (BNV) | payer MEDICARE, BC, SELFPAY | PROVIDERS: Visit Provider Radiology Diagnostic Radiology | DX: M11.262 Other chondrocalcinosis, left knee (principal) | CPT/HCPCS: 73562 ==

== ENCOUNTER 2025-09-12 10:40 | Outpatient (REF) | payer MEDICARE, BC, SELFPAY ==
--- OUTSIDE RECORDS SUMMARY | 2025-09-12 12:44 | XMS_ITS | Clinical Summary ---
Author Organization [facility] Address [address] [place] [address] Phone Care Team Providers Care Exercise Scientist Name Role Phone Jonathon Hammond MD Primary Care Provider Yong Alonzo MD Unavailable [phone] Social History Tobacco Use Types Packs/Day Years [...] file Medical Devices Not on file Insurance [facility] FEDERAL [employer] [facility] [employer] [facility] [employer] [facility] [employer] [facility] [employer] [facility] [employer] FEDER[employer]ERAL Care Teams Exercise Scientist Relationship Specialty Start Date End Date Jonathon Hammond MD [address] [place] [address] [place] [address] PCP - General Internal Medicine 09/05/15 Yong Alonzo MD [address] [place] [phone] [email or web address] Medical Oncology 01/27/16 Additional Source Comments The information contained in this document represents components of the legal health record. It is not the complete legal health record.[facility]
--- OUTSIDE RECORDS SUMMARY | 2025-09-12 12:44 | XMS_ITS | Clinical Summary ---
Author Organization [address] [place] [address] [place] [phone] Phone Care Team Providers Care Logging Operations Inspector Name Role Phone Physician, Pcp Unknown Primary [...] EDT Office Visit Plastic & Reconstructive Surgery [facility] [place] [address] [place] [phone] Key Murrieta PA Squamous cell carcinoma of back (Primary Dx); Skin tags, multiple acquired 07/20/2025 9:00 AM EDT Procedure visit Plastic & Reconstructive Surgery [facility] [address] [place] [phone] Reymundo Rico DO Squamous cell carcinoma of back (Primary Dx) 06/28/2025 Telephone General Surgery [facility] [address] [facility] [address] [place] [address] Reymundo Rico DO from Last 3 Months Social History Tobacco [...] 06/08/2025 COVID-19 Vaccine (8 - Moderna risk season) 2025 08/09/2024, 08/04/2023, 08/30/2022, Additional history exists DTaP,Tdap,and [...] No neoplasm identified 07/21/2025 12:42 PM EDT [facility] Clinical Information Squamous cell carcinoma of back (C44.529) 07/21/2025 12:42 PM EDT [facility] Gross Description A. Back, [...] serially sectioned sequentially from 3-9 o'clock and telephone claims representative sections are submitted in four cassettes. 1-3 and 9 o'clock tips, with green ink at 3 o'clock, two pieces 2-4 center of specimen, blocked out, sequentially submitted from 3-9 (2-3: two pieces each, 4-one piece) TS 07/21/2025 12:42 PM EDT [facility] Disclaimer Unless otherwise specified, all tissue is 10% NB formalin fixed and paraffin embedded. 07/21/2025 12:42 PM EDT [facility] Tissue Structure of upper back / Unknown Non-blood Collection / Unknown 07/20/2025 9:11 AM EDT 07/20/2025 9:12 AM EDT us Reymundo Rico DO LAB PATHOLOGY ORDERABLES Fin al Result [facility] [address] [place] [address], from Last 3 Months Insurance MEDICARE [facility] Care Teams Logging Operations Inspector Relationship Specialty Start Date End Date Physician, Pcp Unknown PCP - General 06/01/25
[2025-09-12 14:22] LABS: Alanine Aminotransferase 21 U/L (0-40); Albumin Level 4.6 g/dL (3.5-5.0); Alkaline Phosphatase 62 U/L (39-117); Anion Gap 13 (12-20); Aspartate Amino Transferase 28 U/L (5-37); Blood Urea Nitrogen 19 mg/dL (9-16); Calcium 10.0 mg/dL (8.4-10.2); Carbon Dioxide 24 mmol/L (22-29); Chloride 104 mmol/L (96-108); Cholesterol 149 mg/dL (<200); Estimated Glomerular Filt Rate > 60; HDL Cholesterol 39 mg/dL (>40); Potassium 4.4 mmol/L (3.3-5.1); Sodium 137 mmol/L (135-145); Total Protein 8.0 g/dL (6.5-8.0); Triglycerides 101 mg/dL (<150)
== END 2025-09-12 10:41 | disposition home or self-care (01) ==
LOC: HO.HMGCLDS 10:40
PROVIDERS: PCP Physician Assistant; Visit Provider Physician Assistant
DX: C44.42 Squamous cell carcinoma of skin of scalp and neck (principal); I10 Essential (primary) hypertension; E11.9 Type 2 diabetes mellitus without complications; E78.00 Pure hypercholesterolemia, unspecified; E03.9 Hypothyroidism, unspecified
CPT/HCPCS: 36415; 80048; 80061; 80076; 83036; 84443

== ENCOUNTER 2025-09-19 10:22 | Outpatient (AMB) | payer MEDICARE, BC, SELFPAY ==
--- NOTE | 2025-09-19 10:26 | A.OFFPC_ITS ---
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: No Accompanied by: Self / Same As Patient Allergies No Known Allergies Allergy (Verified 09/19/25 10:27) Medication List - Last Reconciled 09/19/25 by ELIU Galicia alprazolam 0.25 mg PO BEDTIME PRN [id number] 0.85 mg-200 mcg-1.2 mcg (Neuriva Plus) tabs PO levothyroxine (Levoxyl) 100 mcg PO DAILY lisinopril 5 mg PO DAILY magnesium 200 mg PO DAILY metformin 250 mg (1/2 x 500 mg) PO DAILY simvastatin 20 mg PO BEDTIME [tumeric PO DAILY] Tobacco use date assessed: 03/02/25 Dental Screening Dental Screen Date: 03/02/25 HPI HPI Comments History of Present Illness Details 79-year-old male with history of type 2 diabetes, hypertension, hypothyroidism, hyperlipidemia presents to the office today for evaluation. HTN- BP 126/70. On lisinopril 5mg daily Hypothyroidism- levothyroxine 100mcg. Last TSH 1.19 L knee- follows with [facility] ortho. Cortisone injection with great improvement. Wears brace with activity Type 2 diabetes- last A1c 7.4%, increased from 7.0%. On metformin 250mg daily. Not checking sugars. Insomnia- alprazolam at bedtime only as needed, rare use HLD- on simvastatin 20mg [facility]- Dr. Luevano --> [facility]. Scalp lesion, skin tags Recent diverticulitis- started 1.5 weeks ago with anorexia following toast, constipation, bilateral lower pain. Gradually increased intake. No abx, not seen. 2nd episode, first in 2020. Last colonoscopy 2019, prn follow up Concerns: Continue with neck stiffness. Waxes and wanes in severity. No radiation or weakness. Still goes to the gym twice weekly. Just machines no bar. New pillow has helped. Ongoing months, no injury. using tumeric and multivitamin as well as aleve, and topicals. Going to PT, has been to 6 sessions. Has three left. Somewhat improved ROS: General: No fevers, malaise, unintentional weight loss Skin: see hpi EXAM: Constitutional - Awake and Alert, No apparent distress Eyes - PERRL Neck - no midline tenderness to palpation. There is ttp along the lateral aspect of the neck into the upper trapezius. Full ROM Cardiovascular - S1S2, RRR, No edema Respiratory - Normal lung expansion, Normal respiratory effort, No respiratory distress, CTA bilaterally Extremities - no calf tenderness bilaterally, no swelling Skin - Warm/Dry. Neurological - Alert & oriented x3, 5/5 strength BUE Psychological - Appropriate affect [facility] Medical History (Updated 06/21/25 @ 11:01 by ELIU Galicia) Squamous cell carcinoma, scalp/neck Cataract Hypothyroidism Type 2 diabetes mellitus Hypercholesteremia Hypertension Surgical History History of colonoscopy (~10/25/19) History of left knee surgery Family History (Updated 03/02/25 @ 10:52 by Amy Stratton MA) Mother No problems noted. Father No problems noted. 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 Sumit Barrett, Denita Guerrero, Lester Alcantara and colleagues, with an educational leonidas from [employer]. Physical exam (Primary Care) Vital Signs: Last Vital Signs Temp 97.7 F 09/19/25 10:34 Pulse 76 09/19/25 10:34 Resp 20 09/19/25 10:34 BP 126/70 09/19/25 10:34 Pulse Ox 98 09/19/25 10:34 Oxygen Delivery Method Room Air 09/19/25 10:34 BMI result Body Mass Index 26.7 Tobacco/Smoking Status: Tobacco use Status Tobacco use date assessed 03/02/25 09/19/25 10:37 Patient Tobacco Use Status Never used Tobacco 09/19/25 10:37 e-Cigarette/Vaping Use Never Used 09/19/25 10:37 Thrive Assessment: Date of Thrive Assessment Date Thrive assessed 03/02/25 09/19/25 10:37 Coding Level of Care Code Est Pt Level 4 (42486) Complex EM visit Add On G2211 Diagnoses Hypertension I10 Hypercholesteremia E78.00 Type 2 diabetes mellitus E11.9 Hypothyroidism E03.9 Squamous cell carcinoma, scalp/neck C44.42 Cervical paraspinal muscle spasm M62.838 Assessment & Plan Assessment & Plan (1) Hypertension: Code(s): I10 - Essential (primary) hypertension Category: Medical Plan: Controlled. Continue lisinopril 5 mg daily (2) Hypercholesteremia: Code(s): E78.00 - Pure hypercholesterolemia, unspecified Category: Medical Plan: Continue simvastatin 20 mg daily. (3) Type 2 diabetes mellitus: Code(s): E11.9 - Type 2 diabetes mellitus without complications Category: Medical Plan: Reasonably controlled for age doubt counseled that A1c has increased to 7.4%. Advised to work on compliance with diabetic diet and he will continue on metformin. Continue with annual eye exams (4) Hypothyroidism: Code(s): E03.9 - Hypothyroidism, unspecified Category: Medical Plan: TSH ordered. Continue levothyroxine, dose to be adjusted as needed (5) Squamous cell carcinoma, scalp/neck: Code(s): C44.42 - Squamous cell carcinoma of skin of scalp and neck Category: Medical Plan: Continue following with derm, will request notes (6) Cervical paraspinal muscle spasm: Code(s): M62.838 - Other muscle spasm Category: Medical Plan: Continue with PT. If still no improvement following completion of PT, consider MRI of the cervical spine. Continue with analgesics. Plan Follow-up in the office in 6 months, sooner if needed. Labs to be completed several days prior to visit Orders: Orders Microalbumin, Random (w Creat) 6 Months E03.9 - Hypothyroidism, unspecified, E11.9 - Type 2 diabetes mellitus without complications, E78.00 - Pure hypercholesterolemia, unspecified, I10 - Essential (primary) hypertension Basic Metabolic Panel 6 Months E03.9 - Hypothyroidism, unspecified, E11.9 - Type 2 diabetes mellitus without complications, E78.00 - Pure hypercholesterolemia, unspecified, I10 - Essential (primary) hypertension Hemoglobin A1c 6 Months E03.9 - Hypothyroidism, unspecified, E11.9 - Type 2 diabetes mellitus without complications, E78.00 - Pure hypercholesterolemia, unspecified, I10 - Essential (primary) hypertension Lipid Panel 6 Months E03.9 - Hypothyroidism, unspecified, E11.9 - Type 2 diabetes mellitus without complications, E78.00 - Pure hypercholesterolemia, unspecified, I10 - Essential (primary) hypertension TSH reflex Free T4 6 Months E03.9 - Hypothyroidism, unspecified, E11.9 - Type 2 diabetes mellitus without complications, E78.00 - Pure hypercholesterolemia, unspecified, I10 - Essential (primary) hypertension Medications: Changed From magnesium 200 mg PO DAILY To magnesium 250 mg PO DAILY 90 tabs 0RF
[2025-09-19 10:34] VITALS: BP 126/70; PULSE 76; RESP 20; TEMP 36.5; O2SAT 98; BMI 26.7
--- OUTSIDE RECORDS SUMMARY | 2025-09-19 21:26 | XMS_ITS | Clinical Summary ---
Author Organization [address] [place] [address] [place] [phone] Phone Care Team Providers Care Name Plate Stamper Name Role Phone Physician, Pcp Unknown Primary [...] Office Visit Plastic & Reconstructive Surgery - [place] [address] [place] [phone] Key Murrieta PA Squamous cell carcinoma of back (Primary Dx); Skin tags, multiple acquired 07/20/2025 9:00 AM EDT Procedure visit Plastic & Reconstructive Surgery [facility] [address] [place] [phone] Reymundo Rico DO Squamous cell carcinoma of back (Primary Dx) 06/28/[address] [facility] [address] [place] [address] Reymundo Rico DO from Last [...] Annual BMP Blood Test 06/08/2025 COVID-19 Vaccine ( season) 2025 08/09/2024, 08/04/2023, 08/30/2022, Additional history [...] serially sectioned sequentially from 3-9 o'clock and hr representative sections are submitted in four cassettes. [...] Result [facility] [address] [place] [address], from Last 3 Months Insurance MEDICARE [employer] Care Teams Name Plate Stamper Relationship Specialty Start Date End Date Physician, Pcp Unknown PCP - General 06/01/25
--- OUTSIDE RECORDS SUMMARY | 2025-09-19 21:27 | XMS_ITS | Clinical Summary ---
Author Organization [facility] Address [address] [place] [address] Phone Care Team Providers Care Dust Mill Operator Name Role Phone Jonathon Hammond MD Primary Care Provider Yong Alonzo MD Unavailable [phone] Social History Tobacco Use Types Packs/Day Years [...] file Medical Devices Not on file Insurance [facility] FEDERAL [facility] [employer] [facility] FEDERAL [employer]AL Care Teams Dust Mill Operator Relationship Specialty Start Date End Date Jonathon Hammond MD [address] [place] [address] [place] [address] PCP - General Internal Medicine 09/05/15 Yong Alonzo MD [address] [place] [phone] [email or web address] 01/27/16 Additional Source Comments The information contained in this document represents components of the legal health record. It is not the complete legal health record.[facility]
== END 2025-09-19 11:02 | disposition home or self-care (01) ==
LOC: HO.HMCHD 10:24
PROVIDERS: PCP Physician Assistant; Visit Provider Physician Assistant
DX: I10 Essential (primary) hypertension (principal); E78.00 Pure hypercholesterolemia, unspecified; E11.9 Type 2 diabetes mellitus without complications; E03.9 Hypothyroidism, unspecified; C44.42 Squamous cell carcinoma of skin of scalp and neck; M62.838 Other muscle spasm

== ENCOUNTER → 2025-09-19 10:22 | Outpatient (BNVA) | payer MEDICARE, BC, SELFPAY | PROVIDERS: PCP Physician Assistant; Visit Provider Physician Assistant | DX: I10 Essential (primary) hypertension (principal); E03.9 Hypothyroidism, unspecified; G47.00 Insomnia, unspecified; E11.36 Type 2 diabetes mellitus with diabetic cataract; E78.00 Pure hypercholesterolemia, unspecified; C44.42 Squamous cell carcinoma of skin of scalp and neck; M62.838 Other muscle spasm; R19.8 Other specified symptoms and signs involving the digestive system and abdomen; Z79.84 Long term (current) use of oral hypoglycemic drugs | CPT/HCPCS: 99212 ==